=== PATIENT | male | born 1950 | race Caucasian/White ===

== ENCOUNTER 2017-01-04 17:12 | Inpatient (IN) | payer MEDICARE, MEDICAID ==
--- NOTE | 2017-01-04 19:30 | RAD ---
INDICATION: Shortness of breath. COMPARISON: Most recent comparison chest x-rays dated September 04, 2015 TECHNIQUE: Single AP portable view of the chest was obtained. FINDINGS: Image quality is compromised due to the relative inferiority of a portable chest x-ray. The heart and mediastinum exhibit normal size and contour. The lungs are grossly clear. There is no evidence of a large pleural effusion. Visualized bones are normal for the patient's age. IMPRESSION: No radiographic evidence for acute cardiopulmonary abnormality on this portable chest x-ray.
[2017-01-04] MEDS ORDERED: Cefepime(*) 2 GM in NS 0.9% 50 ML* 50 ML IVPB ONE (20:20)
[2017-01-04] MEDS ORDERED: Ciprofloxacin 400MG IVPREMIX(* 400 MG/200 ML BAG IVPB ONE (20:20)
[2017-01-04] MEDS ORDERED: Acetaminophen TAB* 325 MG PO ONE (20:21)
[2017-01-04] MEDS ORDERED: NS 0.9% 1000 ML* 3,500 ML IV ONE (20:21)
[2017-01-04] MEDS ORDERED: NS 0.9% 50 ML* 50 ML ONE (20:31)
[2017-01-04] MEDS ORDERED: Albuterol/Ipratropium NEB.SOL* Albuterol 2.5 MG/Ipratropium 0.5 MG 3 ML INH ONE (20:33)
[2017-01-04 20:37] LABS: Hematocrit 44 % (42-52); Hemoglobin 14.6 g/dl (14.0-18.0); Mean Corpuscular HGB Conc 33 g/dl (31-36); Mean Corpuscular Hemoglobin 31 pg (27-31); Mean Corpuscular Volume 92 fL (80-94); Mean Platelet Volume 9 um3 (7.4-10.4); Red Blood Count 4.76 10^6/ul (4.0-5.4); Red Cell Distribution Width 15 % (10.5-15); White Blood Count 18.3 10^3/ul (3.5-10.8)
[2017-01-04 20:39] LABS: Add Diff/Slide Review? Slide Review Added; Comments Flag Yes
[2017-01-04 20:52] LABS: Albumin 3.7 g/dL (3.2-5.2); BUN/Creatinine Ratio 19.1 (8-20); Calcium 9.2 mg/dL (8.6-10.3); EGFR African American 109.3 (>60); Globulin 3.9 g/dL (2-4); Potassium 3.8 mmol/L (3.5-5.0); Total Bilirubin 1.2 mg/dL (0.2-1.0); Total Protein 7.6 g/dL (6.4-8.9)
[2017-01-04 20:56] LABS: Troponin I 0.04 ng/mL (<0.04)
--- NOTE | 2017-01-04 21:46 | HP ---
H&P (Free Text) History and Physical: PCP: Roderick Casas MD Date/Time of Evaluation: 01/04/2017 2130 CC: SOB HPI: Mr Keen is a 66YO male resident of [facility] who is a very poor historian. When asked what brought him in he replies, "pneumonia". When asked what makes him think he has pneumonia he replies, "I self diagnosed." He continues to refuse to answer open ended-questions. After extensive directed questioning it is learned that he has had a productive cough for ~4 days without subjective F/C, sweats, or chest pain. He does report moderate R arm pain which started [place] [facility] [place] denies injury or change in activity. Per EMS report they were dispatched to [facility] for severe respiratory distress with an saO2 in the 80s finding Mr Keen confused, alert & oriented appearing calm with unlabored breathing and an saO2 of 93%. He reports SOB & cough, is placed on 4L [place] oxygen, and transported Vitals are notable for Tm 38.8C & saO2 mid-90s on 4L NC. WBCs are 18k 80% neutrophils & troponin is 0.04. Labs are otherwise reasonably normal. CXR is read as negative, but to my eye there has been interval development of R pericardial infiltrate. ECG is benign. PMedHx CVA w/ L hemiparesis HTN DM2 Raynaud's disease chronic B hand pain Ambulatory Orders Nursing to reconcile. Clopidogrel TAB* [Plavix TAB*] 75 mg PO DAILY 09/06/15 Exenatide VIAL (NF) [Bydureon (NF)] 2 mg SUBCUT WEEKLY 09/06/15 Metoprolol Tartrate TAB* [Lopressor TAB*] 100 mg PO BID 09/06/15 Omeprazole CAP* [Prilosec CAP* 20 MG] 40 mg PO DAILY 09/06/15 Pravastatin (NF) [Pravachol (NF)] 40 mg PO DAILY 09/06/15 QUEtiapine TAB* [Seroquel TAB*] 25 mg PO BEDTIME 09/06/15 Baclofen TAB* [Lioresal TAB*] 20 mg PO TID tab 09/08/15 Cholecalciferol TAB* [Vitamin D TAB*] 800 unit PO DAILY tab 09/08/15 Clopidogrel TAB* [Plavix TAB*] 75 mg PO DAILY tab 09/08/15 Hydrochlorothiazide TAB* [Hydrodiuril TAB*] 25 mg PO DAILY tab 09/08/15 Ibuprofen TAB* [Motrin TAB* 400 MG] 400 mg PO Q6H PRN #0 tab 09/08/15 Lisinopril TAB* [Prinivil TAB 10 MG*] 20 mg PO DAILY tab 09/08/15 Melatonin (NF) 3 mg PO BEDTIME PRN #0 tab 09/08/15 Metoprolol Tartrate TAB* [Lopressor TAB*] 100 mg PO BID tab 09/08/15 Polyethylene Glycol 3350* [Miralax*] 17 gm PO BID packet 09/08/15 QUEtiapine TAB* [Seroquel TAB*] 25 mg PO BEDTIME tab 09/08/15 amLODIPine TAB* [Norvasc 5 mg TAB*] 2.5 mg PO DAILY tab 09/08/15 metFORMIN* [Glucophage 850 MG TAB *] 850 mg PO 0800,1700 tab 09/08/15 Allergies No Known Allergies Allergy (Verified 03/10/15 15:25) SocHx: no tobacco, alcohol, or recreational drugs; lives at [facility]; DNR/ trial of intubation code status FamHx: positive for HTN, DM2 ROS: as above, otherwise reviewed and all were negative Constitutional: NAD, normally developed, obese white male vitals: Vital Signs Temp 38.4 C 01/04/17 21:30 Pulse 89 01/04/17 22:00 Resp 19 01/04/17 22:00 BP 140/64 01/04/17 22:00 Pulse Ox 91 01/04/17 22:00 Intake & Output 01/03/17 01/04/17 01/04/17 23:59 11:59 23:59 Intake Total 200 Balance 200 Weight 104.326 kg Intake: IV Fluids 200 HEENM: atraumatic; sclera/conjunctiva: non-icteric/clear; hearing: clinically intact; oropharynx: clear, mucosa tacky Neck: soft tissue: non-tender; thyroid: normal Pulmonary: clear to auscultation bilaterally, good aeration, no accessory muscle use CV: RR/RR, normal S1S2, no carotid bruit, no jugular venous distention, 2+ B DP/ PT, no edema Abdominal: soft, non-distended, non-tender, no rebound/guarding/rigidity, normoactive bowel sounds, no hepatosplenomegaly or masses, no costovertebral angle tenderness Musculoskeletal: general: grossly intact; contracture L wrist; L hemiplegia; gait: non-ambulatory at baseline, wheelchair dependent Integumental: normal appearance and texture of exposed skin Psychiatric orientation: AA&O to PPS but mildly confused affect: calm mood: cooperative eye contact: fair content: reliable responses: mildly slowed insight: poor Testing: Lab Results 01/04/17 01/04/17 01/04/17 Range/Units 20:25 20:25 20:25 WBC 18.3 H (3.5-10.8) 10^3/ul RBC 4.76 (4.0-5.4) 10^6/ul Hgb 14.6 (14.0-18.0) g/dl Hct 44 (42-52) % MCV 92 (80-94) fL MCH 31 (27-31) pg MCHC 33 (31-36) g/dl RDW 15 (10.5-15) % Plt Count 224 (150-450) 10^3/ul MPV 9 (7.4-10.4) um3 Neut % (Auto) 80.5 (38-83) % Lymph % (Auto) 6.5 L (25-47) % Winn % (Auto) 10.8 H (1-9) % Eos % (Auto) 1.9 (0-6) % Baso % (Auto) 0.3 (0-2) % Absolute Neuts (auto) 14.7 H (1.5-7.7) 10^3/ul Absolute Lymphs (auto) 1.2 (1.0-4.8) 10^3/ul Absolute Monos (auto) 2.0 H (0-0.8) 10^3/ul Absolute Eos (auto) 0.4 (0-0.6) 10^3/ul Absolute Basos (auto) 0.1 (0-0.2) 10^3/ul Absolute Nucleated RBC 0.01 10^3/ul Nucleated RBC % 0 Sodium 130 L (133-145) mmol/L Potassium 3.8 (3.5-5.0) mmol/L Chloride 96 L (101-111) mmol/L Carbon Dioxide 26 (22-32) mmol/L Anion Gap 8 (2-11) mmol/L BUN 17 (6-24) mg/dL Creatinine 0.89 (0.67-1.17) mg/dL Est GFR ( Amer) 109.3 (>60) Est GFR (Non-Af Amer) 85.0 (>60) BUN/Creatinine Ratio 19.1 (8-20) Glucose 150 H (70-100) mg/dL Lactic Acid 1.1 (0.5-2.0) mmol/L Calcium 9.2 (8.6-10.3) mg/dL Total Bilirubin 1.20 H (0.2-1.0) mg/dL AST 24 (13-39) U/L ALT 19 (7-52) U/L Alkaline Phosphatase 56 (34-104) U/L Troponin I 0.04 H* (<0.04) ng/mL Total Protein 7.6 (6.4-8.9) g/dL Albumin 3.7 (3.2-5.2) g/dL Globulin 3.9 (2-4) g/dL Albumin/Globulin Ratio 0.9 L (1-3) ECG, personally reviewed: NSR rate 78, no ischemia CXR, personally reviewed: to my eye there has been interval development of R tomi-cardial infiltrate; read as: IMPRESSION: No radiographic evidence for acute cardiopulmonary abnormality on this portable chest x-ray. Impression: 66M presenting with RLL pneumonia DIAGNOSIS & PLAN Primary RLL pneumonia : given IV cefepime & ciprofloxacin by ED : IV piperacillin/tazobactam : blood & sputum CXs : check urine S pneumo & Legionella antigens : IVFs : supplemental oxygen : supportive care Secondary HX CVA w/ L hemiparesis : no acute issues HTN : review meds once reconciled DM2 : insulin carb ratio diet : basal/bolus/correctional insulin : A1c 6.8 10/2016 Admission Rational: observation for initiation of IV ABX for RLL pneumonia DVTp: heparin SQ & SCDs Code Status: DNR trial of intubation/BiPap; MOLST updated HCP: sister, Kim Santana
[2017-01-04] MEDS ORDERED: Melatonin (NF) 3 MG TAB PO PRN (22:56)
[2017-01-04] MEDS ORDERED: Ondansetron INJ* 2 MG/ML VIAL IV PRN (22:57)
[2017-01-04] MEDS ORDERED: Benzonatate CAP* 100 MG PO PRN (22:58)
[2017-01-04] MEDS ORDERED: NS 0.9% 1000 ML* 1,000 ML IV SCH (23:00)
[2017-01-04] MEDS ORDERED: Baclofen TAB* 10 MG PO PRN (23:10)
[2017-01-04] MEDS ORDERED: ZOSYN 3.375 GM x ONE DOSE over 30 miuntes IVPB ×2 (23:30)
[2017-01-05] MEDS: Piperac/Tazob 3.375 gm in NS* 3.375 GM in PREMIX* 0 ML IVPB SCH ×6 (04:21→20:56)
[2017-01-05] MEDS: Omeprazole CAP* 20 MG PO SCH (05:52)
[2017-01-05 06:10] LABS: Hematocrit 39 % (42-52); Hemoglobin 13.1 g/dl (14.0-18.0); Mean Corpuscular HGB Conc 34 g/dl (31-36); Mean Corpuscular Hemoglobin 31 pg (27-31); Mean Corpuscular Volume 92 fL (80-94); Mean Platelet Volume 8 um3 (7.4-10.4); Red Blood Count 4.25 10^6/ul (4.0-5.4); Red Cell Distribution Width 15 % (10.5-15); White Blood Count 10.8 10^3/ul (3.5-10.8)
[2017-01-05 06:12] LABS: Comments Flag Yes
[2017-01-05 06:22] LABS: BUN/Creatinine Ratio 16.5 (8-20); Calcium 8.2 mg/dL (8.6-10.3); EGFR African American 115.3 (>60); EGFR Non-African American 89.6 (>60); Potassium 3.5 mmol/L (3.5-5.0)
[2017-01-05 06:35] LABS: Troponin I 0.04 ng/mL (<0.04)
[2017-01-05] MEDS: Insulin LISPRO* 1 UNITS UNIT SUBCUT SCH ×7 (09:08→22:08)
[2017-01-05] MEDS ORDERED: Magnesium CITRATE* 300 ML BTL PO ONE (09:44)
[2017-01-05] MEDS: Docusate CAP* 100 MG PO SCH ×2 (12:35→20:47)
--- NOTE | 2017-01-05 13:01 | PN ---
Subjective Date of Service: 01/05/17 Interval History: Pt feels "shitty" C/o pain "all over" and feeling weak. Has had "wet cough " x 5 days. Reports no problems with swallowing Objective Active Medications: Acetaminophen (Tylenol Tab*) 650 mg PO Q6H PRN PRN Reason: FEVER/PAIN Baclofen (Lioresal Tab*) 10 mg PO TID PRN PRN Reason: SPASMS Benzonatate (Tessalon Cap*) 100 mg PO BID PRN PRN Reason: COUGH Docusate Sodium (Colace Cap*) 200 mg PO BID [facility] Last Admin: 01/05/17 12:35 Dose: 200 mg Sodium Chloride (Ns 0.9% 1000 Ml*) 1,000 mls @ 125 mls/hr IV PER RATE [facility] Last Admin: 01/05/17 01:32 Dose: 125 mls/hr Piperacillin Sod/Tazobactam (Sod 3.375 gm/ IV Solution) 115 mls @ 28.75 mls/hr IVPB Q8H [facility] Last Admin: 01/05/17 12:35 Dose: 28.75 mls/hr Insulin Glargine (Lantus(*)) 25 units SUBCUT 2100 [facility] Insulin Human Lispro (Humalog*) 0 units SUBCUT AC [facility] PRN Reason: Protocol Last Admin: 01/05/17 12:34 Dose: 5 units Insulin Human Lispro (Humalog*) 0 units SUBCUT ACHS [facility] PRN Reason: Protocol Last Admin: 01/05/17 12:34 Dose: 6 units Melatonin (Melatonin (Nf)) 3 mg PO BEDTIME PRN; Protocol PRN Reason: Sleep Omeprazole (Prilosec Cap*) 20 mg PO DAILY@0600 [facility] Last Admin: 01/05/17 05:52 Dose: 20 mg Ondansetron HCl (Zofran Inj*) 4 mg IV Q6H PRN PRN Reason: NAUSEA Senna (Senokot Tab*) 2 tab PO BEDTIME [facility] Vital Signs 01/04/17 01/04/17 01/04/17 22:00 22:30 23:00 Temperature Pulse Rate 89 82 88 Respiratory 19 25 21 Rate Blood Pressure 140/64 120/58 127/59 (mmHg) O2 Sat by Pulse 91 92 89 Oximetry 01/05/17 01/05/17 00:40 03:18 Temperature 98.0 F 98.3 F Pulse Rate 71 82 Respiratory 22 18 Rate Blood Pressure 129/56 144/62 (mmHg) O2 Sat by Pulse 96 95 Oximetry Oxygen Devices in Use Now: Nasal Cannula - at 3L Appearance: 66 yo M in nAd, aAOx3 Eyes: No Scleral Icterus, PERRLA Ears/Nose/Mouth/Throat: NL Teeth, Lips, Gums, Mucous Membranes Moist Neck: NL Appearance and Movements; NL JVP, Trachea Midline Respiratory: - - rhonchi B/l L>R Cardiovascular: RRR Abdominal: NL Sounds; No Tenderness; No Distention, No Hepatosplenomegaly Lymphatic: No Cervical Adenopathy Extremities: No Clubbing, Cyanosis, - - trace pedal edema b/l Skin: No Nodules or Sclerosis Neurological: Alert and Oriented x 3, - - left hemiparesis Result Diagrams: 01/05/17 05:46 01/05/17 05:46 Microbiology and Other Data: Microbiology 01/05/17 02:50 Gram Stain - Final Sputum 01/05/17 02:10 Legionella Urinary Antigen - Final Urine Negative Legionella Streptococcus pneumoniae Ag Screen - Final Negative S. pneumo Antigen 01/05/17 01:10 Nasal Screen MRSA (PCR)(RICH) - Final Nasal Mrsa Positive Assess/Plan/Problems-Billing Assessment:66 yo M with h/o HTN, left hemiparesis due to CVa presents with pneumonia - Patient Problems (1) Healthcare-associated pneumonia Comment: cont zosyn, added Azithro Legoinella/Strep pneumo antg neg (2) Hemiparesis Comment: Chronic L hemiparesis due to CVA cont Plavix (3) Diabetes Comment: cont ISS/Lantus metformin on hold (4) HTN (hypertension) Comment: restarted Lisinopril and metoprolol. Holding HCTZ (5) DVT prophylaxis Comment: heparin sc Status and Disposition: inpatient
[2017-01-05] MEDS ORDERED: Azithromycin TAB* 250 MG PO ONE (13:03)
[2017-01-05] MEDS ORDERED: Albuterol 2.5 MG/3 ML NEB.SOL* (0.083%) INH PRN (13:07)
[2017-01-05] MEDS ORDERED: guaiFENesin LIQ* 100 MG/5 ML UDC PO PRN (13:07)
[2017-01-05] MEDS: Heparin VIAL(*) 5000 UNITS/ML VIAL (FIVE THOUSAND) SUBCUT SCH ×2 (14:04→22:08)
[2017-01-05] MEDS: Baclofen TAB* 10 MG PO SCH ×2 (14:04→20:46)
[2017-01-05 17:36] LABS: Urine Bacteria Absent (Absent); Urine Bilirubin Negative (Negative); Urine Glucose 1+(50 mg/dL) (Negative); Urine Nitrite Negative (Negative)
[2017-01-05] MEDS: Sodium Chloride TAB* 1 GM PO SCH (20:46)
[2017-01-05] MEDS: Metoprolol Tartrate TAB* 50 mg PO SCH (20:47)
[2017-01-05] MEDS: Senna TAB PO SCH (20:47)
[2017-01-05] MEDS: Insulin GLARGINE(*) 1 UNITS UNIT SUBCUT SCH (22:09)
[2017-01-06] MEDS: Acetaminophen TAB* 325 MG PO PRN ×2 (00:03→18:57)
[2017-01-06] MEDS: Piperac/Tazob 3.375 gm in NS* 3.375 GM in PREMIX* 0 ML IVPB SCH ×6 (02:49→19:16)
[2017-01-06] MEDS: Omeprazole CAP* 20 MG PO SCH (05:27)
[2017-01-06] MEDS: Heparin VIAL(*) 5000 UNITS/ML VIAL (FIVE THOUSAND) SUBCUT SCH ×3 (05:27→21:23)
--- NOTE | 2017-01-06 07:58 | PN ---
Subjective Date of Service: 01/06/17 Interval History: Feels much better. temp of mx 100.3 at night still no BM Objective Active Medications: Acetaminophen (Tylenol Tab*) 650 mg PO Q6H PRN PRN Reason: FEVER/PAIN Last Admin: 01/06/17 00:03 Dose: 650 mg Albuterol (Ventolin 2.5 Mg/3 Ml Neb.Hoda*) 2.5 mg INH Q6H PRN PRN Reason: SHORTNESS OF BREATH Azithromycin (Zithromax Tab*) 250 mg PO DAILY [facility] Baclofen (Lioresal Tab*) 10 mg PO TID PRN PRN Reason: SPASMS Baclofen (Lioresal Tab*) 20 mg PO TID [facility] Last Admin: 01/05/17 20:46 Dose: 20 mg Benzonatate (Tessalon Cap*) 100 mg PO BID PRN PRN Reason: COUGH Docusate Sodium (Colace Cap*) 200 mg PO BID [facility] Last Admin: 01/05/17 20:47 Dose: 200 mg Guaifenesin (Robitussin*) 10 ml PO Q4H PRN PRN Reason: COUGH Heparin Sodium (Porcine) (Heparin Vial(*)) 5,000 units SUBCUT Q8HR [facility] Last Admin: 01/06/17 05:27 Dose: 5,000 units Piperacillin Sod/Tazobactam (Sod 3.375 gm/ IV Solution) 115 mls @ 28.75 mls/hr IVPB Q8H [facility] Last Admin: 01/06/17 02:49 Dose: 28.75 mls/hr Insulin Glargine (Lantus(*)) 25 units SUBCUT 2100 [facility] Last Admin: 01/05/17 22:09 Dose: 25 units Insulin Human Lispro (Humalog*) 0 units SUBCUT AC [facility] PRN Reason: Protocol Last Admin: 01/05/17 17:31 Dose: 5 units Insulin Human Lispro (Humalog*) 0 units SUBCUT ACHS [facility] PRN Reason: Protocol Last Admin: 01/05/17 22:08 Dose: 3 units Lisinopril (Prinivil Tab*) 20 mg PO DAILY [facility] Melatonin (Melatonin (Nf)) 3 mg PO BEDTIME PRN; Protocol PRN Reason: Sleep Metoprolol Tartrate (Lopressor Tab*) 75 mg PO BID [facility] Last Admin: 01/05/17 20:47 Dose: 75 mg Omeprazole (Prilosec Cap*) 20 mg PO DAILY@0600 [facility] Last Admin: 01/06/17 05:27 Dose: 20 mg Ondansetron HCl (Zofran Inj*) 4 mg IV Q6H PRN PRN Reason: NAUSEA Polyethylene Glycol/Electrolytes (Miralax*) 17 gm PO DAILY [facility] Senna (Senokot Tab*) 2 tab PO BEDTIME [facility] Last Admin: 01/05/17 20:47 Dose: 2 tab Sodium Chloride (Sodium Chloride Tab*) 1 gm PO BID [facility] Last Admin: 01/05/17 20:46 Dose: 1 gm Vital Signs 01/05/17 01/05/17 01/05/17 16:35 19:50 20:00 Temperature 99.6 F 100.3 F Pulse Rate 106 120 Respiratory 28 20 18 Rate Blood Pressure 166/86 153/95 (mmHg) O2 Sat by Pulse 95 92 Oximetry 01/05/17 01/06/17 01/06/17 23:28 00:57 03:22 Temperature 100.3 F 100.3 F 99.4 F Pulse Rate 93 93 82 Respiratory 27 27 16 Rate Blood Pressure 164/81 164/81 143/70 (mmHg) O2 Sat by Pulse 100 100 92 Oximetry 01/06/17 07:30 Temperature 98.0 F Pulse Rate 74 Respiratory 16 Rate Blood Pressure 156/85 (mmHg) O2 Sat by Pulse 93 Oximetry Oxygen Devices in Use Now: None Appearance: 66 yo M in nAD, AAOx3 Eyes: No Scleral Icterus, PERRLA Ears/Nose/Mouth/Throat: NL Teeth, Lips, Gums, Mucous Membranes Moist Neck: NL Appearance and Movements; NL JVP, Trachea Midline Respiratory: Symmetrical Chest Expansion and Respiratory Effort, - - faint bibasiliar crackles Cardiovascular: NL Sounds; No Murmurs; No JVD, RRR Abdominal: NL Sounds; No Tenderness; No Distention Lymphatic: No Cervical Adenopathy Extremities: No Clubbing, Cyanosis, - - trace pedal edema b/l Skin: No Rash or Ulcers, No Nodules or Sclerosis Neurological: Alert and Oriented x 3, - - L hemiparesis Result Diagrams: 01/05/17 05:46 01/05/17 05:46 Microbiology and Other Data: Microbiology 01/05/17 02:50 Gram Stain - Final Sputum 01/05/17 02:10 Legionella Urinary Antigen - Final Urine Negative Legionella Streptococcus pneumoniae Ag Screen - Final Negative S. pneumo Antigen 01/05/17 01:10 Nasal Screen MRSA (PCR)(RICH) - Final Nasal Mrsa Positive Assess/Plan/Problems-Billing Assessment:66 yo M with h/o HTN, left hemiparesis due to CVa presents with pneumonia - Patient Problems (1) Healthcare-associated pneumonia Comment: cont zosyn,Azithro Legoinella/Strep pneumo antg neg improved greatly. Plan x 24 hrs of IV antibiotics ( due to temp of 100.3) and possible d/c in AM (2) Hemiparesis Comment: Chronic L hemiparesis due to CVA cont Plavix (3) Diabetes Comment: cont ISS/Lantus metformin on hold (4) HTN (hypertension) Comment: cont Lisinopril and metoprolol. restarting HCTZ (5) DVT prophylaxis Comment: heparin sc Status and Disposition: inpatient, plan to d/c to [facility] tomorrow.
[2017-01-06] MEDS: Sodium Chloride TAB* 1 GM PO SCH ×2 (09:02→21:21)
[2017-01-06] MEDS: Metoprolol Tartrate TAB* 50 mg PO SCH ×2 (09:02→21:20)
[2017-01-06] MEDS: Lisinopril TAB* 10 MG PO SCH (09:03)
[2017-01-06] MEDS: Hydrochlorothiazide TAB* 25 MG PO SCH (09:03)
[2017-01-06] MEDS: Baclofen TAB* 10 MG PO SCH ×3 (09:03→21:19)
[2017-01-06] MEDS: Azithromycin TAB* 250 MG PO SCH (09:03)
[2017-01-06] MEDS: Docusate CAP* 100 MG PO SCH ×2 (09:04→21:20)
[2017-01-06] MEDS: Insulin LISPRO* 1 UNITS UNIT SUBCUT SCH ×7 (09:05→21:22)
[2017-01-06] MEDS: Polyethylene Glycol 3350* 17 GM PACKET PO SCH (09:05)
[2017-01-06] MEDS ORDERED: Benzocaine/Menthol LOZ* 1 LOZENGE PO PRN (16:04)
[2017-01-06] MEDS: Senna TAB PO SCH (21:20)
[2017-01-06] MEDS: Insulin GLARGINE(*) 1 UNITS UNIT SUBCUT SCH (21:21)
[2017-01-06] MEDS ORDERED: CMCS - Melatonin (NF) 3 MG TAB PO PRN (21:52)
[2017-01-07] MEDS: Acetaminophen TAB* 325 MG PO PRN (02:40)
[2017-01-07] MEDS: Piperac/Tazob 3.375 gm in NS* 3.375 GM in PREMIX* 0 ML IVPB SCH ×4 (02:40→14:44)
[2017-01-07] MEDS: Omeprazole CAP* 20 MG PO SCH (05:52)
[2017-01-07] MEDS: Heparin VIAL(*) 5000 UNITS/ML VIAL (FIVE THOUSAND) SUBCUT SCH ×3 (05:52→22:59)
[2017-01-07] MEDS ORDERED: Sodium Phosphate ADULT ENEMA* 118 ml bottle PR ONE (07:25)
[2017-01-07] MEDS ORDERED: Magnesium Hydroxide LIQ* 30 ML UDC PO ONE (07:25)
[2017-01-07] MEDS ORDERED: PEG 3000 GI LAVAGE* 1 GALLON PO ONE (07:28)
[2017-01-07 08:25] LABS: Hematocrit 38 % (42-52); Hemoglobin 12.8 g/dl (14.0-18.0); Mean Corpuscular HGB Conc 34 g/dl (31-36); Mean Corpuscular Hemoglobin 31 pg (27-31); Mean Corpuscular Volume 92 fL (80-94); Mean Platelet Volume 8 um3 (7.4-10.4); Red Blood Count 4.09 10^6/ul (4.0-5.4); Red Cell Distribution Width 15 % (10.5-15); White Blood Count 10.3 10^3/ul (3.5-10.8)
[2017-01-07 08:36] LABS: Albumin 3.1 g/dL (3.2-5.2); BUN/Creatinine Ratio 15.9 (8-20); Calcium 8.4 mg/dL (8.6-10.3); EGFR African American 110.8 (>60); EGFR Non-African American 86.1 (>60); Globulin 3.7 g/dL (2-4); Total Protein 6.8 g/dL (6.4-8.9)
[2017-01-07 08:41] LABS: Potassium 3.8 mmol/L (3.5-5.0)
[2017-01-07] MEDS: Insulin LISPRO* 1 UNITS UNIT SUBCUT SCH ×7 (10:12→22:57)
[2017-01-07] MEDS: Hydrochlorothiazide TAB* 25 MG PO SCH (11:09)
[2017-01-07] MEDS: Metoprolol Tartrate TAB* 50 mg PO SCH ×2 (11:10→22:59)
[2017-01-07] MEDS: Docusate CAP* 100 MG PO SCH ×2 (11:10→22:59)
[2017-01-07] MEDS: Lisinopril TAB* 10 MG PO SCH (11:11)
[2017-01-07] MEDS: Baclofen TAB* 10 MG PO SCH ×3 (11:11→22:57)
[2017-01-07] MEDS: Azithromycin TAB* 250 MG PO SCH (11:12)
[2017-01-07] MEDS: Polyethylene Glycol 3350* 17 GM PACKET PO SCH (11:42)
[2017-01-07] MEDS: Sodium Chloride TAB* 1 GM PO SCH ×2 (11:43→22:57)
[2017-01-07] MEDS ORDERED: Magnesium CITRATE* 300 ML BTL PO ONE (13:07)
--- NOTE | 2017-01-07 13:22 | DS ---
DISCHARGE SUMMARY: DATE OF ADMISSION: 01/04/17 DATE OF DISCHARGE: 01/07/17 PRIMARY CARE PROVIDER: Physician at [facility]. DISCHARGE DIAGNOSIS: Healthcare-associated pneumonia. SECONDARY DIAGNOSES: 1. History of cerebrovascular accident with left-sided hemiparesis. 2. Hypertension. 3. Diabetes type 2. 4. Raynaud's disease. 5. Chronic pain. MEDICATIONS AT DISCHARGE: Include: 1. Azithromycin 250 mg p.o. daily for a total of 3 days. 2. Augmentin 500 mg p.o. b.i.d. for a total of 5 days. Remaining medications are mostly unchanged apart from the addition of laxatives and includes: 1. Albuterol nebulizer on a p.r.n. basis. 2. Baclofen 20 mg 3 times a day p.r.n. 3. Vitamin D3 2000 units daily. 4. Plavix 75 mg daily. 5. Colace 200 mg b.i.d. 6. Hydrochlorothiazide 25 mg daily. 7. Lisinopril 20 mg daily. 8. Metoprolol tartrate 75 mg b.i.d. 9. MiraLAX 17 g daily. 10. Pravachol 20 mg daily. 11. Senna 2 tablets at bedtime. 12. Sodium chloride tablets 1 g b.i.d. 13. Robitussin 10 mL every 4 hours p.r.n. 14. Metformin 850 mg p.o. b.i.d. STUDIES PERFORMED DURING THE HOSPITAL STAY: Include: On 01/07/17: White blood cell count was 10.3, hemoglobin of 12.8, hematocrit of 38, and platelet count of 218. Sodium of 131, potassium of 3.8, chloride 99, carbon dioxide 25, BUN 14, and creatinine 0.88. Liver functions were unremarkable. Urinalysis on 01/05/17 showed trace blood, absent bacteria, and trace ketones. Microbiology studies showed sputum culture positive for Staphylococcus aureus and normal opal. Urine Legionella and streptococcus pneumo antigens were negative. Blood cultures were negative to the day of discharge. Portable chest x-ray obtained on admission, impression: "No radiographic evidence for acute cardiopulmonary abnormality on this portable chest x-ray." HOSPITALIZATION COURSE: Elias Keen is a 66-year-old unfortunate male with history of ischemic CVA, with chronic left-sided hemiparesis, who was currently a snf resident at [facility] and presented complaining of shortness of breath, cough, and feeling unwell. He was noted to have right pericardial infiltrate, although his chest x-ray was officially read as unremarkable. He responded very well to intravenous antibiotics. His initial white blood cell count was 18,000 and within 24 hours normalized. He was treated with Zosyn and azithromycin, with good results. His hypoxemia resolved within 24 hours. At discharge, the patient still complains of right upper quadrant abdominal pain that is worse with cough. He does have point tenderness in the area and the discomfort is most likely related to muscle strain while coughing. His liver function tests are unremarkable. In addition to that he is at his baseline. He does have coarse breath sounds bilaterally, but his hypoxemia resolved entirely. He is going to be discharged back to [facility] to follow up with his primary care physician there. PHYSICAL EXAMINATION AT THE TIME OF DISCHARGE: Vital Signs: Blood pressure 157 /89, heart rate of 63 and regular, respiratory rate of 19, oxygen saturation 93 % on room air, temperature of 98.2. General: The patient is a very pleasant 66 -year- old male who is not in acute distress. Alert, awake, and oriented x3. HEENT: Head is atraumatic, normocephalic. Eyes: Pupils equal, reactive to light and accommodation. Oropharynx clear. Mucosa moist. Neck: Supple. No JVD. No bruits bilaterally. Cardiovascular: Regular rate and rhythm. No murmurs. Respiratory: Coarse breath sounds bilaterally. No wheezes. Abdomen: Soft, with specific point tenderness in the right upper quadrant in the anterior axillary line, with no rebound and no guarding. Bowel sounds are present in all 4 quadrants. Extremities: There is trace bilateral pedal edema. Pulses are +2 bilaterally. There is no clubbing or cyanosis. Neuro Evaluation: The patient has left-sided hemiparesis. Speech is clear. Please note that this is a short summary of the patient's hospital stay. Please refer to further medical records for details. TIME SPENT: Approximately 40 minutes were spent on the patient's discharge. ADDENDUM TO DISCHARGE SUMMARY: DATE OF ADMISSION: 01/04/2017. DATE OF DISCHARGE: 01/08/2017. The discharge summary was originally dictated yesterday, which was 01/07/17. The addendum is as follows. Please note that Mr. Keen refused to be discharged on 01/07/17, stating that he "is not going to be put out on the street on ." Since the patient refused to be transferred back to his [facility], he stayed overnight and the very next day, he was ready to go home. Overnight, he sipped on a liter of GoLYTELY and he had a large bowel movement. Also noted that his systolic pressures had been elevated and his medications were adjusted. The chances to his medications include: 1. His metoprolol tartrate is increased from 75 to 100 mg b.i.d. 2. His lisinopril is increased from 20 mg daily to 20 mg in the morning and 10 mg at night. The remaining medications are unchanged. His physical exam was unchanged from the one that was dictated prior. The patient still complains and has point tenderness in the right upper quadrant of his abdomen. The pain occurs when he coughs in the same area. It is most likely due to muscle strain. CC: [facility]* [id number]/[facility] #: [id number]/[facility] #: [id number] MTDD
[2017-01-07] MEDS ORDERED: Lisinopril TAB* 10 MG PO ONE (16:41)
[2017-01-07] MEDS ORDERED: hydrALAZINE IV* 20 MG/ML VIAL IV SLOW PU PRN (18:41)
[2017-01-07] MEDS: Amoxicillin/Clavulanate TAB* 500 MG PO SCH (22:57)
[2017-01-07] MEDS: Insulin GLARGINE(*) 1 UNITS UNIT SUBCUT SCH (22:58)
[2017-01-07] MEDS: Senna TAB PO SCH (23:00)
[2017-01-08] MEDS ORDERED: hydrALAZINE IV* 20 MG/ML VIAL IV SLOW PU PRN (00:53)
[2017-01-08] MEDS: Heparin VIAL(*) 5000 UNITS/ML VIAL (FIVE THOUSAND) SUBCUT SCH (05:47)
[2017-01-08] MEDS: Omeprazole CAP* 20 MG PO SCH (05:47)
[2017-01-08] MEDS: Insulin LISPRO* 1 UNITS UNIT SUBCUT SCH ×3 (08:43→12:24)
[2017-01-08] MEDS ORDERED: Metoprolol Tartrate TAB* 100 MG TAB PO SCH (09:00)
[2017-01-08] MEDS: Azithromycin TAB* 250 MG PO SCH (09:32)
[2017-01-08] MEDS: Amoxicillin/Clavulanate TAB* 500 MG PO SCH (09:32)
[2017-01-08] MEDS: Baclofen TAB* 10 MG PO SCH (09:32)
[2017-01-08] MEDS: Lisinopril TAB* 10 MG PO SCH (09:32)
[2017-01-08] MEDS: Sodium Chloride TAB* 1 GM PO SCH (09:33)
[2017-01-08] MEDS: Hydrochlorothiazide TAB* 25 MG PO SCH (09:33)
[2017-01-08] MEDS: Docusate CAP* 100 MG PO SCH (09:33)
[2017-01-08] MEDS: Polyethylene Glycol 3350* 17 GM PACKET PO SCH (10:04)
[2017-01-08 11:53] VITALS: BP 158/80
--- NOTE | 2017-01-08 15:46 | DS ---
ADDENDUM: The discharge summary was originally dictated yesterday, which was 01/07/17. The addendum is as follows. Please note that Mr. Keen refused to be discharged on 01/07/17, stating that he "is not going to be put out on the street on ." Since the patient refused to be transferred back to his [facility], he stayed overnight and the very next day, he was ready to go ana . Overnight, he sipped on a liter of GoLYTELY and he had a large bowel movement. Also noted that his systolic pressures had been elevated and his medications were adjusted. The chances to his medications include: 1. His metoprolol tartrate is increased from 75 to 100 mg b.i.d. 2. His lisinopril is increased from 20 mg daily to 20 mg in the morning and 10 mg at night. The remaining medications are unchanged. His physical exam was unchanged from the one that was dictated prior. The patient still complains a nd has point tenderness in the right upper quadrant of his abdomen. The pain occurs when he coughs in the same area. It is most likely due to muscle strain. [id number]/[facility] #: [id number]
== END 2017-01-08 13:30 | DRG 194 ==
LOC: ED 17:12 → MEDTELE 21:45 → OBSVTOIN 01-05 14:58 → MED 01-05 23:06
PROVIDERS: ADMIT Hospitalist; ATTEND Internal Medicine
DX: J18.9 Pneumonia, unspecified organism (principal); I69.354 Hemiplegia and hemiparesis following cerebral infarction affecting left non-dominant side; E11.9 Type 2 diabetes mellitus without complications; I10 Essential (primary) hypertension; G89.29 Other chronic pain; B95.61 Methicillin susceptible Staphylococcus aureus infection as the cause of diseases classified elsewhere; I73.00 Raynaud's syndrome without gangrene; Z66 Do not resuscitate; S39.011A Strain of muscle, fascia and tendon of abdomen, initial encounter; M79.641 Pain in right hand; M79.642 Pain in left hand; Y95 Nosocomial condition; Z83.3 Family history of diabetes mellitus; Z82.49 Family history of ischemic heart disease and other diseases of the circulatory system; Z99.3 Dependence on wheelchair; Z79.02 Long term (current) use of antithrombotics/antiplatelets; R09.02 Hypoxemia; X58.XXXA Exposure to other specified factors, initial encounter; Y92.9 Unspecified place or not applicable
CPT/HCPCS: 36415; 71010; 80048; 80053; 81003; 81015; 83605; 84484; 85025; 87040; 87070; 87077; 87186; 87205; 87641; 87899; 93005; 94150; 94640; 94760; A9270-GY; G0378; J0360; J0692; J0744; J1644; J2543

== ENCOUNTER 2018-01-30 16:53 | Inpatient (IN) | payer MEDICARE, MEDICAID ==
[2018-01-30] MEDS ORDERED: NS 0.9% 1000 ML*IV.FLUID IV ONE (17:43)
[2018-01-30] MEDS ORDERED: Acetaminophen TAB* 325 MG PO ONE (17:54)
--- NOTE | 2018-01-30 17:58 | ED ---
Respiratory - HPI Summary HPI Summary: 67 male presents from [facility] with shortness breath and fever for the past 2 days. He claims he is not more fatigued than normal. He admits to cough. He denies any chest pain. He admits to occasional headache. He also admits to occasionally sore throat and sinus congestion. Also complains of chronic right wrist pain. When asked if has COPD or asthma he states maybe a little but can not find such in his record. He has history of a previous CVA. He denies any belly pain. No nausea and no vomiting. He states he is sometimes is on oxygen at home. He currently is on 2 L oxygen. He is a diabetic and has HTN. per note from intermediate patient has had AMS. - History of Current Complaint Chief Complaint: EDFever Stated Complaint: GENERAL ILLNESS Time Seen by Provider: 01/30/18 17:43 Pain Intensity: 2 - Allergy/Home Medications Allergies/Adverse Reactions: Allergies Allergy/AdvReac Type Severity Reaction Status Date / Time No Known Allergies Allergy Verified 03/10/15 15:25 Home Medications: Home Medications Baclofen TAB* [Lioresal TAB*] 20 mg PO 0700,1500,2300 01/30/18 [History Confirmed 01/30/18] Hydrochlorothiazide TAB* [Hydrodiuril TAB*] 25 mg PO QAM 01/30/18 [History Confirmed 01/30/18] Lactic Acid CR 12% (NF) [Lac-Hydrin 12% (NF)] 12 % TOPICAL BID 01/30/18 [ History Confirmed 01/30/18] Lisinopril TAB* [Prinivil TAB 10 MG*] 20 mg PO QAM 01/30/18 [History Confirmed 01/30/18] Ondansetron TAB* [Zofran 4 MG Tab*] 4 mg PO Q6H PRN 01/30/18 [History Confirmed 01/30/18] Pravastatin (NF) [Pravachol (NF)] 20 mg PO QAM 01/30/18 [History Confirmed 01/30] metFORMIN* [Glucophage 850 MG TAB *] 850 mg PO BID 01/30/18 [History Confirmed 01/30/18] PMH/Surg Hx/FS Hx/Imm Hx Endocrine/Hematology History: Reports: Hx Diabetes Denies: Hx Systemic Lupus Erythematosus Cardiovascular History: Reports: Hx Hypertension Denies: Hx Congestive Heart Failure, Hx Pacemaker/ICD History: Reports: Hx Benign Prostatic Hyperplasia Denies: Hx Dialysis, Hx Renal Disease Musculoskeletal History: Reports: Hx Arthritis Denies: Hx Rheumatoid Arthritis Sensory History: Reports: Hx Contacts or Glasses Denies: Hx Hearing Aid Opthamlomology History: Reports: Hx Contacts or Glasses Neurological History: Reports: Hx CVA - in 2009, Hx Transient Ischemic Attacks ( TIA) Psychiatric History: Denies: Hx Eating Disorder, Hx Panic Disorder, Hx of Violent Episodes Against Others - Cancer History Hx Chemotherapy: No - Surgical History Surgery Procedure, Year, and Place: 1973 - SHOULDER & CLAVICLE REPAIR. TONSILECTOMY. CATARACTS - JE[facility]-2008 Infectious Disease History: No Infectious Disease History: Denies: Traveled Outside the [place] in Last 30 Days - Family History Known Family History: Positive: Other - Hx breast CA in mother - Social History Alcohol Use: None Substance Use Type: Reports: None Smoking Status (MU): Never Smoked Tobacco Review of Systems Positive: Fever. Negative: Fatigue Negative: Chest Pain Positive: Shortness Of Breath, Cough All Other Systems Reviewed And Are Negative: Yes Physical Exam Triage Information Reviewed: Yes Vital Signs On Initial Exam: Initial Vitals Temp Pulse Resp BP Pulse Ox 101.3 F 88 36 144/67 95 01/30/18 17:12 01/30/18 17:12 01/30/18 17:12 01/30/18 17:12 01/30/18 17:12 Vital Signs Reviewed: Yes Appearance: Positive: Well-Appearing Skin: Positive: Warm, Dry Head/Face: Positive: Normal Head/Face Inspection Eyes: Positive: Normal, EOMI, KRYSTEN, Conjunctiva Clear ENT: Positive: Normal ENT inspection, Pharynx normal, TMs normal Neck: Positive: Supple, Nontender, No Lymphadenopathy Respiratory/Lung Sounds: Positive: Breath Sounds Present, Rhonchi - left lower lobe Cardiovascular: Positive: Normal, RRR Abdomen Description: Positive: Nontender, Soft Bowel Sounds: Positive: Present Musculoskeletal: Positive: Normal Neurological: Positive: Normal Psychiatric: Positive: Normal Diagnostics - Vital Signs Vital Signs Temp Pulse Resp BP Pulse Ox 01/30/18 17:12 101.3 F 88 36 144/67 95 - Laboratory Result Diagrams: 01/30/18 18:51 01/30/18 18:51 Lab Statement: Any lab studies that have been ordered have been reviewed, and results considered in the medical decision making process. - Radiology chest Xray Interpretation: Positive (See Comments) Radiology Interpretation Completed By: Radiologist - EKG No standard instances Cardiac Rate: NL EKG Rhythm: Sinus Rhythm EKG Interpretation: sinus rhythm EKG Comparison: No Significant Change Disposition - Course Course Of Treatment: Discussed case with Dr. hoff who agrees to admit patient. 67 male presents from [facility] with shortness breath and fever for the past 2 days. He claims he is not more fatigued than normal. He admits to cough. He denies any chest pain. He admits to occasional headache. He also admits to occasionally sore throat and sinus congestion. Also complains of chronic right wrist pain. When asked if has COPD or asthma he states maybe a little but can not find such in his record. He has history of a previous CVA. He denies any belly pain. No nausea and no vomiting. He states he is sometimes is on oxygen at home. He currently is on 2 L oxygen. He is a diabetic. per intermediate note patient has had AMS. On exam has rhonchi left lower lobe. Heart regular rate and rhythm. Abdomen soft nontender. ekg normal sinus. chest xray shows left lower lobe inflitrate, wbc elevated. lactic normal. gave fluid and cefepime. discussed case with dr bey who agrees to admit patient. - Differential Dx - Cardiopulmonary Differential Diagnoses - Cardiopulmonary: Bronchitis, Lower Resp Infection, Other - uti - Diagnoses Provider Diagnoses: Pneumonia, Sepsis - Critical Care Time Critical Care Time: 30-74 min - 35 Discharge - Sign-Out/Discharge Documenting (check all that apply): Discharge/Admit/Transfer - Discharge Plan Condition: Stable Disposition: ADMITTED TO [facility] - Billing Disposition and Condition Condition: STABLE Disposition: Admitted to [facility]
--- NOTE | 2018-01-30 18:33 | RAD ---
INDICATION: Fever and cough. COMPARISON: Comparison is made with a prior study from April 06, 2017. TECHNIQUE: AP and lateral views of the chest were obtained. FINDINGS: The heart is within normal limits in size. Mediastinal and hilar contours appear within normal limits. The lungs are underinflated. There is a small infiltrate in the left lower lobe. No pleural effusion is seen. IMPRESSION: LOW LUNG VOLUMES, SMALL LEFT LOWER LOBE INFILTRATE
[2018-01-30] MEDS ORDERED: Cefepime(*) 2 GM in NS 0.9% 50 ML* 50 ML IVPB ONE (18:40)
[2018-01-30 19:02] LABS: Hematocrit 44 % (42-52); Hemoglobin 14.9 g/dl (14.0-18.0); Mean Corpuscular HGB Conc 34 g/dl (31-36); Mean Corpuscular Hemoglobin 32 pg (27-31); Mean Corpuscular Volume 92 fL (80-94); Mean Platelet Volume 7.8 um3 (7.4-10.4); Platelet Count 257 10^3/ul (150-450); Red Blood Count 4.73 10^6/ul (4.00-5.40); Red Cell Distribution Width 15 % (10.5-15); White Blood Count 14.2 10^3/ul (3.5-10.8)
[2018-01-30 19:10] LABS: INR 1.06 (0.77-1.02)
[2018-01-30] MEDS ORDERED: NS 0.9% 50 ML* 50 ML ONE (19:10)
[2018-01-30] MEDS ORDERED: Cefepime 2 GM in Dextrose(*) 2 GM/50 ML BAG IV ONE (19:12)
[2018-01-30 19:23] LABS: EGFR Non-African American 84.8 (>60)
[2018-01-30 19:43] LABS: ABS Basophils 0.1 10^3/ul (0-0.2); ABS Eosinophils 0.3 10^3/ul (0-0.6); ABS Lymphocytes 0.7 10^3/ul (1.0-4.8); ABS Monocytes 1.9 10^3/ul (0-0.8); ABS Neutrophils 11.3 10^3/ul (1.5-7.7); ABS Nucleated RBC 0 10^3/ul; Eosinophil % 1.9 % (0-6); Lymphocyte % 5.2 % (25-47); Nucleated Red Blood Cells % 0
[2018-01-30] MEDS ORDERED: Albuterol 2.5 MG/3 ML NEB.SOL* (0.083%) INH PRN (20:46)
[2018-01-30] MEDS ORDERED: Magnesium Hydroxide LIQ* 30 ML UDC PO PRN (20:46)
[2018-01-30] MEDS ORDERED: Ondansetron INJ* 2 MG/ML VIAL IV PRN (20:46)
[2018-01-30] MEDS ORDERED: Al Hydrox/Mg Hydrox/Simet LIQ* 30 ML UDC PO PRN (20:46)
[2018-01-30] MEDS ORDERED: NS 0.9% 1000 ML* 1,000 ML IV SCH (21:00)
[2018-01-30] MEDS ORDERED: Dextrose 50% Syringe 50 ML* 25 GM/50 ML SYRINGE IV PUSH PRN (21:03)
[2018-01-30] MEDS ORDERED: Benzonatate CAP* 100 MG PO PRN (21:05)
[2018-01-30 21:39] LABS: Urine Appearance Turbid; Urine Blood Negative (Negative); Urine Color Amber; Urine Ketones Trace (Negative); Urine Protein 3+(>=500 mg/dL) (Negative); Urine Specific Gravity 1.026 (1.010-1.030); Urine Urobilinogen Negative (Negative)
[2018-01-30] MEDS ORDERED: Azithromycin IV* 500 MG ADVAN VIAL/BAG IVPB ONE (21:57)
[2018-01-30] MEDS ORDERED: Cefepime 1 GM in Dextrose(*) 1 GM/50 ML BAG IV SCH (22:00)
[2018-01-30] MEDS: Azithromycin IV(*) 500 MG in NS 0.9% 250 ML* 250 ML IVPB SCH (22:05)
[2018-01-31] MEDS: Heparin VIAL(*) 5000 UNITS/ML VIAL (FIVE THOUSAND) SUBCUT SCH ×5 (00:23→20:22)
--- NOTE | 2018-01-31 04:51 | HP ---
CC: Dr. Casas * ADMISSION HISTORY AND PHYSICAL: DATE OF ADMISSION: 01/30/18 PATIENT OF: Rebeca Smith MD * (DICTATED BY FELIPE COATES) PRIMARY CARE PHYSICIAN: Jere Casas MD CHIEF COMPLAINT: Cough and fever. HISTORY OF PRESENT ILLNESS: Mr. Keen is a pleasant 67-year-old gentleman who carries past medical history significant for CVA with left hemiparesis as well as hypertension, type 2 diabetes mellitus, Raynaud's disease, who has been a resident of [facility], and presented to the emergency room earlier this evening with complaints of worsening cough and fever today. Patient is a very poor historian and he answer most questions with one word, however, he is alert and oriented to his place and continues sometimes to refusing answer questions more than one words. He notes that he has been doing relatively well until the past few days when he noticed increasing productive cough and shortness of breath. According to [facility] staff, he also developed fever today with generalized weakness and lethargy more prominent than his baseline. Patient has frequent episode of pneumonia in the past most recently in December of 2016 when he was admitted. He denies any chest pain, nausea, vomiting, or any other associated symptoms. He had some sweats last night and he said he did not have any chills and he noticed that productive cough has been going on for few days with some phlegm noted. He was evaluated in the emergency room and noted to have leukocytosis with white count of 14,000. His vitals revealed heart rate in the 80s. He also had a fever of 101.3. He was found to meet sepsis II criteria for which IV fluid were given as well as antibiotics. He had chest x-ray as well that revealed left lower lobe infiltrate consistent with pneumonia. Given his ongoing symptoms and finding of his x-ray as well as meeting criteria for sepsis , we were asked to see the patient for further evaluation and to discuss admission. PAST MEDICAL HISTORY: As mentioned above. Significant for: 1. CVA with hemiparesis for the past few years for which the patient has been very limited physical activity. He uses the wheelchair and to use hauling technique to move him from bed to chair. Otherwise, he is nonambulatory. 2. Hypertension. 3. Diabetes mellitus, type 2. 4. Hyperlipidemia. 5. Raynaud's disease. 6. Coronary artery disease. 7. Chronic constipation. PAST SURGICAL HISTORY: Significant for left shoulder repair due to frequent dislocation back in 1973. CURRENT MEDICATIONS: According to [facility] records, his current medications include: 1. Tylenol 650 mg p.o. q.4 hours as needed for fever or pain. 2. Baclofen 20 mg p.o. daily. 3. Vitamin D3 2000 units p.o. daily. 4. Hydrochlorothiazide 25 mg p.o. daily. 5. Lactic acid topical solution 12% as prescribed. 6. Lisinopril 20 mg p.o. daily. 7. Glucophage 850 mg p.o. b.i.d. 8. Zofran 4 mg p.o. q.6 hours as needed for nausea. 9. MiraLax 17 g p.o. daily. 10. Pravachol 20 mg p.o. daily. 11. Docusate sodium two tablets p.o. q.h.s. 12. Sodium chloride tablet once daily. 13. Plavix 75 mg p.o. daily. 14. Metoprolol 100 mg p.o. b.i.d. ALLERGIES: He has no known drug allergies. FAMILY HISTORY: Significant for hypertension and type 2 diabetes mellitus. SOCIAL HISTORY: Patient is a nonsmoker, who denies alcohol intake and no illicit drug use. He has been residing at [facility] since his CVA with left-sided hemiparesis. His sister, Mando, is healthcare proxy carrier and he has MOLST form updated and he wishes to be a DNR. REVIEW OF SYSTEMS: See HPI, otherwise 14 system review of systems were essentially negative. PHYSICAL EXAMINATION GENERAL: He is an obese elderly gentleman, appears comfortable and in no acute distress or discomfort at the time of admission. VITAL SIGNS: Revealed temperature of 99.9, pulse of 79, respiration of 30, O2 sat of 94% on 2 L oxygen, and blood pressure of 142/71. HEENT: Head is normocephalic, atraumatic. PERRLA, sclerae anicteric. EOMs intact. Oropharynx is pink and moist. NECK: Supple. Trachea midline. No cervical adenopathy, thyromegaly, or JVD. LUNGS: There is bibasilar rhonchi noted but breath sounds otherwise clear and there is no evidence of wheezing. HEART: Regular rate and rhythm. Normal S1 and S2 without rubs, murmurs, or gallops. BACK: With normal curvature. No CVA tenderness. ABDOMEN: Soft, nontender, and nondistended. No hernias, masses, or hepatosplenomegaly. EXTREMITIES: Without cyanosis, clubbing, or edema. RECTAL: Deferred at this time. NEUROLOGIC: There is left-sided hemiparesis noted, more pronounced to the left upper extremity with some contraction noted at the wrist joint. Otherwise, muscle bag machine adjuster to the right side is normal. Tongue is midline and sensation is intact throughout. LABORATORY WORKUP: CBC revealed leukocytosis with white count of 14,000, hemoglobin of 14.9, hematocrit of 44, and platelets of 257. Chemistry panel: Sodium of 132, potassium 3.6, chloride 96, CO2 of 27, BUN of 14, and creatinine of 0.9. His glucose of 213, lactic acid 1.6. LFTs essentially within normal limits. BNP slightly elevated with value of 153. ACCESSORY DIAGNOSTIC DATA: Chest x-ray as mentioned above revealed evidence of small left lower lobe infiltrate as well as low lung volumes. EKG was done, revealed no evidence of ST changes. IMPRESSION: A 67-year-old gentleman with past medical history significant for hypertension, CVA, and diabetes mellitus, who has been residing at [facility] and wheelchair bound, who was brought to the emergency room with few days history of worsening cough and fever today and found to have a left lower lobe pneumonia. ASSESSMENT AND PLAN: 1. Left lower lobe pneumonia. Patient was given the appropriate coverage in the ED with IV cefepime and quinolone. He also received adequate IV hydration per sepsis protocol. We will continue IV antibiotics using cefepime and add azithromycin. Blood cultures and sputum culture were drawn, awaiting results. We also checked his urine for Strep pneumo and Legionella antigens. Supplemental oxygen and supportive care as well. We will give him another liter of IV fluid and encourage p.o. intake. 2. Cerebrovascular accident with left hemiparesis, appears to be stable and no acute issues. We will provide supportive care. Probably PT/OT evaluation in the morning. 3. Hypertension. We will continue home medication. 4. Diabetes mellitus type 2. We will cover him with insulin per sliding scale. Most recent hemoglobin A1c on record was 6.8 back in October of last year. 5. DVT prophylaxis. Patient is a high risk and would be covered with subcu heparin. 6. Code status. He is a DNR and MOLST form has been updated and signed. DISPOSITION AT ADMISSION: To medical floor for IV antibiotics and treatment of pneumonia as well as supportive care. TIME SPENT: Approximately 60 minutes were spent admitting this patient with 50 % has been taking history and performing physical exam. FELIPE COATES [id number]/CPS #: [id number] MTDD
[2018-01-31 08:12] LABS: Hematocrit 36 % (42-52); Hemoglobin 12.1 g/dl (14.0-18.0); Mean Corpuscular HGB Conc 33 g/dl (31-36); Mean Corpuscular Hemoglobin 31 pg (27-31); Mean Corpuscular Volume 94 fL (80-94); Mean Platelet Volume 8.1 um3 (7.4-10.4); Platelet Count 193 10^3/ul (150-450); Red Blood Count 3.85 10^6/ul (4.00-5.40); Red Cell Distribution Width 15 % (10.5-15); White Blood Count 7.5 10^3/ul (3.5-10.8)
[2018-01-31 08:31] LABS: EGFR Non-African American 106.5 (>60)
[2018-01-31] MEDS: Insulin LISPRO* 1 UNITS UNIT SUBCUT SCH ×4 (09:23→20:22)
[2018-01-31] MEDS: Baclofen TAB* 20 MG PO SCH ×4 (09:26→23:07)
[2018-01-31] MEDS: Metoprolol Tartrate TAB* 100 MG TAB PO SCH ×3 (09:26→20:22)
[2018-01-31] MEDS: Hydrochlorothiazide TAB* 25 MG PO SCH (09:26)
[2018-01-31] MEDS: Clopidogrel TAB* 75 MG PO SCH (09:27)
[2018-01-31] MEDS: Atorvastatin* 10 MG TAB PO SCH (09:27)
[2018-01-31] MEDS: Lisinopril TAB* 10 MG PO SCH (09:28)
[2018-01-31] MEDS: Polyethylene Glycol 3350* 17 GM PACKET PO SCH (09:28)
[2018-01-31] MEDS: Docusate CAP* 100 MG PO SCH ×3 (09:28→20:22)
[2018-01-31] MEDS: Cholecalciferol TAB* 1000 UNITS PO SCH (09:28)
[2018-01-31] MEDS: guaiFENesin ER TAB 600 MG PO SCH ×2 (09:28→20:22)
[2018-01-31] MEDS: Sodium Chloride TAB* 1 GM PO SCH (09:29)
[2018-01-31 10:08] LABS: Monocytes % 17 % (0-7)
[2018-01-31 10:12] LABS: ABS Basophils 0 10^3/ul (0-0.2); ABS Eosinophils 0.4 10^3/ul (0-0.6); ABS Lymphocytes 1.1 10^3/ul (1.0-4.8); ABS Monocytes 1.5 10^3/ul (0-0.8); ABS Neutrophils 4.5 10^3/ul (1.5-7.7)
--- NOTE | 2018-01-31 10:28 | PN ---
Subjective Date of Service: 01/31/18 Interval History: Dry cough still present but improved. Not SOB. No new c/o. Objective Active Medications: Acetaminophen (Tylenol Tab*) 650 mg PO Q4H PRN PRN Reason: FEVER/PAIN Al Hydrox/Mg Hydrox/Simethicone (Maalox Plus*) 30 ml PO Q6H PRN PRN Reason: INDIGESTION Albuterol (Ventolin 2.5 Mg/3 Ml Neb.Hoda*) 2.5 mg INH [id number] AWAKE PRN PRN Reason: sob/wheezing Atorvastatin Calcium (Lipitor*) 5 mg PO QAM [facility]; Protocol Last Admin: 01/31/18 09:27 Dose: 5 mg Baclofen (Lioresal Tab*) 20 mg PO 0700,1500,2300 [facility] Last Admin: 01/31/18 09:26 Dose: 20 mg Benzonatate (Tessalon Cap*) 100 mg PO BID PRN PRN Reason: COUGH Last Admin: 01/31/18 00:00 Dose: 100 mg Cholecalciferol (Vitamin D Tab*) 2,000 units PO QAM [facility] Last Admin: 01/31/18 09:28 Dose: 2,000 units Clopidogrel Bisulfate (Plavix Tab*) 75 mg PO DAILY [facility] Last Admin: 01/31/18 09:27 Dose: 75 mg Dextrose (D50w Syringe 50 Ml*) 12.5 gm IV PUSH .FOR FS < 60 - SS PRN PRN Reason: FS < 60 Docusate Sodium (Colace Cap*) 100 mg PO BID [facility] Last Admin: 01/31/18 09:28 Dose: 100 mg Guaifenesin (Mucinex*) 600 mg PO BID [facility] Last Admin: 01/31/18 09:28 Dose: 600 mg Heparin Sodium (Porcine) (Heparin Vial(*)) 5,000 units SUBCUT Q8HR [facility] Last Admin: 01/31/18 05:19 Dose: 5,000 units Hydrochlorothiazide (Hydrodiuril Tab*) 25 mg PO QAM [facility] Last Admin: 01/31/18 09:26 Dose: 25 mg Azithromycin 500 mg/ Sodium (Chloride) 250 mls @ 250 mls/hr IVPB Q24H [facility] Last Admin: 01/30/18 22:05 Dose: 250 mls/hr Cefepime HCl (Maxipime 1 Gm In Dextrose Duplex (*)) 1 gm in 50 mls @ 100 mls/ hr IV Q24H [facility] Insulin Human Lispro (Humalog*) 0 units SUBCUT ACHS [facility]; Protocol Last Admin: 01/31/18 09:23 Dose: 2 units Lisinopril (Prinivil Tab*) 20 mg PO QAM [facility] Last Admin: 01/31/18 09:28 Dose: 20 mg Magnesium Hydroxide (Milk Of Magnesia Liq*) 30 ml PO Q4H PRN PRN Reason: CONSTIPATION Metoprolol Tartrate (Lopressor Tab*) 100 mg PO BID [facility] Last Admin: 01/31/18 09:26 Dose: 100 mg Ondansetron HCl (Zofran Inj*) 4 mg IV Q4H PRN PRN Reason: NAUSEA/VOMITING Polyethylene Glycol/Electrolytes (Miralax*) 17 gm PO DAILY [facility] Last Admin: 01/31/18 09:28 Dose: 17 gm Sodium Chloride (Sodium Chloride Tab*) [facility] [place] Last Admin: 01/31/18 09:29 Dose: 1 gm Vital Signs - 8 hr 01/31/18 01/31/18 03:46 08:13 Temperature 97.3 F 97.9 F Pulse Rate 69 67 Respiratory 18 24 Rate Blood Pressure 149/76 146/82 (mmHg) O2 Sat by Pulse 93 94 Oximetry Oxygen Devices in Use Now: Nasal Cannula Appearance: Alert, partly up in bed. In good spirits, very friendly. Looks comfortable. Eyes: No Scleral Icterus Respiratory: Symmetrical Chest Expansion and Respiratory Effort, Clear to Auscultation, Clear to Percussion Cardiovascular: NL Sounds; No Murmurs; No JVD, RRR, No Edema, - Extremities: No Edema, No Clubbing, Cyanosis, - Skin: No Rash or Ulcers, No Nodules or Sclerosis, - Neurological: NL Sensation - Dense L hemiparesis as before. No tremor. Result Diagrams: 01/31/18 07:19 01/31/18 07:19 Microbiology and Other Data: Microbiology 01/30/18 21:28 Legionella Urinary Antigen - Final Urine Negative Legionella Antigen 01/30/18 21:28 Streptococcus pneumoniae Ag Screen - Final Urine Negative S. pneumo Antigen Assess/Plan/Problems-Billing Assessment: - Patient Problems (1) Pneumonia Current Visit: Yes Status: Acute Code(s): J18.9 - PNEUMONIA, UNSPECIFIED ORGANISM SNOMED Code(s): 029852075 Comment: Improved. WBC much lower 01/31. Continue cefepime + azith one more day,m consider d/c on quinolone 02/01 if stable. (2) Diabetes Current Visit: No Status: Acute Code(s): E11.9 - TYPE 2 DIABETES MELLITUS WITHOUT COMPLICATIONS SNOMED Code(s): 85709861 Comment: cont ISS/Lantus metformin on hold (3) Hemiparesis Current Visit: No Status: Acute Code(s): G81.90 - HEMIPLEGIA, UNSPECIFIED AFFECTING UNSPECIFIED SIDE SNOMED Code(s): 46381036 Comment: Chronic L hemiparesis due to CVA cont Plavix (4) HTN (hypertension) Current Visit: No Status: Acute Code(s): I10 - ESSENTIAL (PRIMARY) HYPERTENSION SNOMED Code(s): 02852433 Comment: cont Lisinopril, metoprolol, and thiazide..
[2018-01-31] MEDS: Cefepime 1 GM in Dextrose(*) 1 GM/50 ML BAG IV SCH (20:00)
[2018-01-31] MEDS: Acetaminophen TAB* 325 MG PO PRN (20:21)
[2018-01-31] MEDS: Azithromycin IV(*) 500 MG in NS 0.9% 250 ML* 250 ML IVPB SCH (23:04)
[2018-02-01] MEDS: Baclofen TAB* 20 MG PO SCH ×3 (06:26→21:42)
[2018-02-01] MEDS: Heparin VIAL(*) 5000 UNITS/ML VIAL (FIVE THOUSAND) SUBCUT SCH ×3 (06:26→21:42)
[2018-02-01] MEDS: Polyethylene Glycol 3350* 17 GM PACKET PO SCH (08:24)
[2018-02-01] MEDS: Cholecalciferol TAB* 1000 UNITS PO SCH (08:25)
[2018-02-01] MEDS: Atorvastatin* 10 MG TAB PO SCH (08:25)
[2018-02-01] MEDS: Sodium Chloride TAB* 1 GM PO SCH (08:25)
[2018-02-01] MEDS: Docusate CAP* 100 MG PO SCH ×2 (08:26→20:19)
[2018-02-01] MEDS: Hydrochlorothiazide TAB* 25 MG PO SCH (08:26)
[2018-02-01] MEDS: Clopidogrel TAB* 75 MG PO SCH (08:26)
[2018-02-01] MEDS: Lisinopril TAB* 10 MG PO SCH (08:26)
[2018-02-01] MEDS: Metoprolol Tartrate TAB* 100 MG TAB PO SCH ×2 (08:26→20:19)
[2018-02-01] MEDS: Insulin LISPRO* 1 UNITS UNIT SUBCUT SCH ×4 (08:27→20:55)
[2018-02-01] MEDS: guaiFENesin ER TAB 600 MG PO SCH ×2 (08:27→20:18)
[2018-02-01] MEDS ORDERED: Magnesium CITRATE* 300 ML BTL PO ONE (09:39)
--- NOTE | 2018-02-01 09:43 | PN ---
Subjective Date of Service: 02/01/18 Interval History: Cough improving. No SOB or chest pain. Constipated. Objective Active Medications: Acetaminophen (Tylenol Tab*) 650 mg PO Q4H PRN PRN Reason: FEVER/PAIN Last Admin: 01/31/18 20:21 Dose: 650 mg Al Hydrox/Mg Hydrox/Simethicone (Maalox Plus*) 30 ml PO Q6H PRN PRN Reason: INDIGESTION Albuterol (Ventolin 2.5 Mg/3 Ml Neb.Hoda*) 2.5 mg INH [id number] AWAKE PRN PRN Reason: sob/wheezing Atorvastatin Calcium (Lipitor*) 5 mg PO QAM [facility]; Protocol Last Admin: 02/01/18 08:25 Dose: 5 mg Baclofen (Lioresal Tab*) 20 mg PO 0700,1500,2300 [facility] Last Admin: 02/01/18 06:26 Dose: 20 mg Benzonatate (Tessalon Cap*) 100 mg PO BID PRN PRN Reason: COUGH Last Admin: 01/31/18 00:00 Dose: 100 mg Cholecalciferol (Vitamin D Tab*) [facility] Last Admin: 02/01/18 08:25 Dose: 2,000 units Clopidogrel Bisulfate (Plavix Tab*) 75 mg PO DAILY [facility] Last Admin: 02/01/18 08:26 Dose: 75 mg Dextrose (D50w Syringe 50 Ml*) 12.5 gm IV PUSH .FOR FS < 60 - SS PRN PRN Reason: FS < 60 Docusate Sodium (Colace Cap*) 100 mg PO BID [facility] Last Admin: 02/01/18 08:26 Dose: 100 mg Guaifenesin (Mucinex*) 600 mg PO BID [facility] Last Admin: 02/01/18 08:27 Dose: 600 mg Heparin Sodium (Porcine) (Heparin Vial(*)) 5,000 units SUBCUT Q8HR [facility] Last Admin: 02/01/18 06:26 Dose: 5,000 units Hydrochlorothiazide (Hydrodiuril Tab*) 25 mg PO QAM [facility] Last Admin: 02/01/18 08:26 Dose: 25 mg Azithromycin 500 mg/ Sodium (Chloride) 250 mls @ 250 mls/hr IVPB Q24H [facility] Last Admin: 01/31/18 23:04 Dose: 250 mls/hr Cefepime HCl (Maxipime 1 Gm In Dextrose Duplex (*)) 1 gm in 50 mls @ 100 mls/ hr IV Q24H [facility] Last Admin: 01/31/18 20:00 Dose: 100 mls/hr Insulin Human Lispro (Humalog*) 0 units SUBCUT ACHS [facility]; Protocol Last Admin: 02/01/18 08:27 Dose: 2 units Lisinopril (Prinivil Tab*) 20 mg PO QAM [facility] Last Admin: 02/01/18 08:26 Dose: 20 mg Magnesium Hydroxide (Milk Of Magnesia Liq*) 30 ml PO Q4H PRN PRN Reason: CONSTIPATION Metoprolol Tartrate (Lopressor Tab*) 100 mg PO BID [facility] Last Admin: 02/01/18 08:26 Dose: 100 mg Ondansetron HCl (Zofran Inj*) 4 mg IV Q4H PRN PRN Reason: NAUSEA/VOMITING Polyethylene Glycol/Electrolytes (Miralax*) 17 gm PO DAILY [facility] Last Admin: 02/01/18 08:24 Dose: 17 gm Sodium Chloride (Sodium Chloride Tab*) [facility] [place] Last Admin: 02/01/18 08:25 Dose: 1 gm Vital Signs - 8 hr 02/01/18 02/01/18 02/01/18 03:36 03:49 08:00 Temperature 98.0 F Pulse Rate 63 Respiratory 22 20 Rate Blood Pressure 150/86 (mmHg) O2 Sat by Pulse 92 92 94 Oximetry 02/01/18 08:17 Temperature 98.2 F Pulse Rate 57 Respiratory 20 Rate Blood Pressure 145/80 (mmHg) O2 Sat by Pulse 94 Oximetry Oxygen Devices in Use Now: None Appearance: Alert, partly up in bed. In good spirits. Looks comfortable. Eyes: No Scleral Icterus Respiratory: Symmetrical Chest Expansion and Respiratory Effort, Clear to Auscultation, Clear to Percussion Cardiovascular: NL Sounds; No Murmurs; No JVD, RRR, No Edema, - Extremities: No Edema, No Clubbing, Cyanosis, - Skin: No Rash or Ulcers, No Nodules or Sclerosis, - Neurological: Alert and Oriented x 3, NL Sensation, - - Dense L hemiparesis as before. No tremor. Result Diagrams: 01/31/18 07:19 01/31/18 14:36 Microbiology and Other Data: Microbiology 01/30/18 21:28 Legionella Urinary Antigen - Final Urine Negative Legionella Antigen 01/30/18 21:28 Streptococcus pneumoniae Ag Screen - Final Urine Negative S. pneumo Antigen Assess/Plan/Problems-Billing Assessment: - Patient Problems (1) Pneumonia Current Visit: Yes Status: Acute Code(s): J18.9 - PNEUMONIA, UNSPECIFIED ORGANISM SNOMED Code(s): 259730328 Comment: Improved. T 100.3 01/31/18 20:17 hrs. Continue cefepime + azith, d/ c on quinolone 02/02 if stable. (2) Diabetes Current Visit: No Status: Acute Code(s): E11.9 - TYPE 2 DIABETES MELLITUS WITHOUT COMPLICATIONS SNOMED Code(s): 24655773 Comment: cont ISS/Lantus. FS glucose 148 02/01. metformin on hold (3) Hemiparesis Current Visit: No Status: Acute Code(s): G81.90 - HEMIPLEGIA, UNSPECIFIED AFFECTING UNSPECIFIED SIDE SNOMED Code(s): 47393649 Comment: Chronic L hemiparesis due to CVA cont Plavix (4) HTN (hypertension) Current Visit: No Status: Acute Code(s): I10 - ESSENTIAL (PRIMARY) HYPERTENSION SNOMED Code(s): 73717644 Comment: cont Lisinopril, metoprolol, and thiazide..
[2018-02-01] MEDS: guaiFENesin LIQ* 100 MG/5 ML UDC PO SCH ×4 (11:13→20:20)
[2018-02-01] MEDS: Cefepime 1 GM in Dextrose(*) 1 GM/50 ML BAG IV SCH (20:18)
[2018-02-01] MEDS: Azithromycin IV(*) 500 MG in NS 0.9% 250 ML* 250 ML IVPB SCH (21:42)
[2018-02-01] MEDS: Acetaminophen TAB* 325 MG PO PRN (21:42)
[2018-02-02] MEDS: Heparin VIAL(*) 5000 UNITS/ML VIAL (FIVE THOUSAND) SUBCUT SCH (06:43)
[2018-02-02] MEDS: Baclofen TAB* 20 MG PO SCH (06:43)
[2018-02-02] MEDS: Polyethylene Glycol 3350* 17 GM PACKET PO SCH (08:44)
[2018-02-02] MEDS: Insulin LISPRO* 1 UNITS UNIT SUBCUT SCH ×2 (08:46→12:15)
[2018-02-02] MEDS: Hydrochlorothiazide TAB* 25 MG PO SCH (08:46)
[2018-02-02] MEDS: Atorvastatin* 10 MG TAB PO SCH (08:47)
[2018-02-02] MEDS: guaiFENesin ER TAB 600 MG PO SCH (08:47)
[2018-02-02] MEDS: Docusate CAP* 100 MG PO SCH (08:49)
[2018-02-02] MEDS: Metoprolol Tartrate TAB* 100 MG TAB PO SCH (08:50)
[2018-02-02] MEDS: Clopidogrel TAB* 75 MG PO SCH (08:50)
[2018-02-02] MEDS: Lisinopril TAB* 10 MG PO SCH (08:51)
[2018-02-02] MEDS: Cholecalciferol TAB* 1000 UNITS PO SCH (08:52)
[2018-02-02] MEDS: guaiFENesin LIQ* 100 MG/5 ML UDC PO SCH (08:54)
[2018-02-02] MEDS: Sodium Chloride TAB* 1 GM PO SCH (09:10)
[2018-02-02] MEDS ORDERED: Levofloxacin TAB* 500 MG PO SCH (10:00)
--- NOTE | 2018-02-02 10:23 | PN ---
Progress Note - Progress Note Date of Service: 02/02/18 Note: Time spent on discharge 50 minutes.
--- NOTE | 2018-02-02 10:58 | TRS ---
TRANSFER SUMMARY: DATE OF TRANSFER: 02/02/2018 HISTORY OF PRESENT ILLNESS: This 67-year-old man was transferred from [facility] because of cough and fever. He had been sick for a few days. He had a productive cough and was s hort of breath. In the emergency room, his white count was over 14,000, his temperature was 101.3. He had a left lower lobe infiltrate. He was treated for sepsis and given IV fluids and antibiotics, mainly he was treated with cefepime. He had vancomycin in the beginning. He did very well in the [facility]. He was afebrile over the last 36 hours in the hospital. His white blood cell count came down to 7.5 on 01/31/18. He felt much better. His cough was almost gone by the time of discharge. FINAL DIAGNOSES: 1. Pneumonia. 2. Diabetes. 3. Hemiparesis from old stroke. 4. Hypertension. MEDICATIONS ON TRANSFER: 1. Benzonatate 100 mg b.i.d. 2. Guaifenesin liquid 10 mL q.i.d. through 02/06/18. 3. Levofloxacin 500 mg daily through 02/04/18. 4. Clopidogrel 75 mg daily. 5. Polyethylene glycol 17 g daily. 6. Acetaminophen 650 mg every 4 hours p.r.n. 7. Sodium chloride 1 g daily. 8. Sennosides 2 tabs daily at 7 p.m. 9. Vitamin D3 2000 units daily. 10. Metoprolol tartrate 100 mg b.i.d. 11. Ondansetron 4 mg p.o. every 6 hours p.r.n. 12. Lac-Hydrin 12% b.i.d. 13. Pravastatin 20 mg daily. 14. Baclofen 20 mg 0700, 1300, and 2300. 15. Metformin 850 mg b.i.d. 16. Lisinopril 20 mg daily. 17. Hydrochlorothiazide 25 mg daily. DISPOSITION: Patient is transferred to [facility]. [id number]/[facility] #: [id number]
[2018-02-02 13:21] VITALS: BP 156/71
[2018-02-02] MEDS ORDERED: metFORMIN* 850 MG TAB PO SCH (17:00)
== END 2018-02-02 13:51 | DRG 871 ==
LOC: ED 16:53 → MED 20:46
PROVIDERS: ADMIT Internal Medicine; ATTEND Internal Medicine
DX: A41.9 Sepsis, unspecified organism (principal); J18.9 Pneumonia, unspecified organism; I69.354 Hemiplegia and hemiparesis following cerebral infarction affecting left non-dominant side; E11.9 Type 2 diabetes mellitus without complications; I73.00 Raynaud's syndrome without gangrene; E78.5 Hyperlipidemia, unspecified; I25.10 Atherosclerotic heart disease of native coronary artery without angina pectoris; I11.9 Hypertensive heart disease without heart failure; K59.09 Other constipation; Z66 Do not resuscitate; Z99.3 Dependence on wheelchair; Z79.84 Long term (current) use of oral hypoglycemic drugs; Z79.1 Long term (current) use of non-steroidal anti-inflammatories (NSAID); Z79.02 Long term (current) use of antithrombotics/antiplatelets; Z79.899 Other long term (current) drug therapy; Z82.49 Family history of ischemic heart disease and other diseases of the circulatory system; Z83.3 Family history of diabetes mellitus
CPT/HCPCS: 36415; 71046; 80048; 80053; 81003; 81015; 83605; 83880; 84484; 85025; 85060; 85610; 85730; 87040; 87086; 87899; 93005; 99284; A9270-GY; G8978-GP-CN; G8979-GP-CN; G8980-GP-CN; J0456; J0692; J1644

== ENCOUNTER 2018-12-30 06:32 | Inpatient (IN) | payer MEDICARE, MEDICAID ==
[2018-12-30] MEDS ORDERED: NS 0.9% 1000 ML** 1,000 ML IV ONE (06:41)
[2018-12-30] MEDS ORDERED: Cefepime 2 GM in Dextrose(*) 2 GM/50 ML BAG IV ONE (06:53)
[2018-12-30 07:09] LABS: Hematocrit 46 % (42-52); Hemoglobin 15.3 g/dL (14.0-18.0); Mean Corpuscular HGB Conc 33 g/dL (31-36); Mean Corpuscular Hemoglobin 31 pg (27-31); Mean Corpuscular Volume 93 fL (80-94); Mean Platelet Volume 8.5 fL (7.4-10.4); Platelet Count 363 10^3/uL (150-450); Red Blood Count 4.96 10^6 /uL (4.18-5.48); Red Cell Distribution Width 15 % (10.5-15); White Blood Count 17.9 10^3/uL (3.5-10.8)
[2018-12-30 07:27] LABS: ABS Basophils 0.2 10^3/ul (0-0.2); ABS Eosinophils 0.3 10^3/ul (0-0.6); ABS Lymphocytes 1.8 10^3/ul (1.0-4.8); ABS Monocytes 2.4 10^3/ul (0-0.8); ABS Neutrophils 13.3 10^3/ul (1.5-7.7); Eosinophil % 1.8 %; Lymphocyte % 10.2 %
[2018-12-30 07:28] LABS: Albumin 3.6 g/dL (3.2-5.2); Albumin/Globulin Ratio 0.9 (1-3); BUN/Creatinine Ratio 31.3 (8-20); C Reactive Protein 68.63 mg/L (<8.01); Calcium 9.1 mg/dL (8.6-10.3); EGFR African American 49.8 (>60); EGFR Non-African American 41.2 (>60); Globulin 4.2 g/dL (2-4); Total Bilirubin 1.1 mg/dL (0.2-1.0); Total Protein 7.8 g/dL (6.4-8.9)
[2018-12-30 07:30] LABS: Troponin I 0.02 ng/mL (<0.04)
[2018-12-30 07:51] LABS: Urine Appearance Cloudy; Urine Bacteria 1+ (Absent); Urine Bilirubin Negative (Negative); Urine Blood Negative (Negative); Urine Color Yellow; Urine Glucose 1+(50 mg/dL) (Negative); Urine Ketones Negative (Negative); Urine Nitrite Negative (Negative); Urine Protein 2+(100 mg/dL) (Negative); Urine Red Blood Cell Absent (Absent); Urine Specific Gravity 1.014 (1.010-1.030); Urine Squamous Epithelial Cell Present (Absent); Urine Urobilinogen Negative (Negative); Urine White Blood Cell Trace(0-5/hpf) (Absent)
[2018-12-30] MEDS ORDERED: Levofloxacin 750 MG IVPREMIX(* 750 MG/150 ML BAG IVPB ONE (08:23)
--- NOTE | 2018-12-30 08:58 | ED ---
Altered Mental Status - HPI Summary HPI Summary: Patient is a 68-year-old male who lives at [facility] presenting by EMS with AMS. History of CVA with left hemiparesis, DM type II, Reynauds and HTN. Patient is a poor historian however states over the past 3 weeks he has been developing worsening cough and shortness of breath. He is also endorsing diffuse abdominal pain with coughing only. Last BM 4 days ago. He states this is fairly typical for him. He does not recall if it was loose or performed. [facility] staff state he has been more altered with a worsening wet cough over the past week. A chest x-ray and labs were obtained yesterday and he was seen here today for possible pneumonia. He denies any CP or SOB. Symptoms are not worse with lying flat or better with sitting upright. Patient appears confused , is oriented to person, and place but not to time or his surroundings. Patient is repeating himself frequently. Nonsmoker, denies any alcohol use. Currently a DNR. - History Of Current Complaint Chief Complaint: EDAltMentalStatus Stated Complaint: "GENERAL ILLNESS" PER PT Time Seen by Provider: 12/30/18 06:36 Hx Obtained From: EMS, Medical Records Hx From Patient Unobtainable Due To: Altered Mental Status Onset/Duration: Still Present Timing: Constant Severity Initially: Moderate Severity Currently: Moderate Character: Confusion Alleviating Factor(s): Nothing Associated Signs And Symptoms: Negative: Dizziness, Seizure, Nausea, Vomiting, Fever - Risk Factors Cardiac Risk Factors: Negative CVA Risk Factor: Negative - Allergies/Home Medications Allergies/Adverse Reactions: Allergies Allergy/AdvReac Type Severity Reaction Status Date / Time No Known Allergies Allergy Verified 12/30/18 07:48 Home Medications: Home Medications Nystatin TOP POWDER* 1 applic .ROUTE BID 12/30/18 [History Confirmed 12/30/18] PMH/Surg Hx/FS Hx/Imm Hx Previously Healthy: Yes Endocrine/Hematology History: Reports: Hx Diabetes Denies: Hx Systemic Lupus Erythematosus Cardiovascular History: Reports: Hx Hypertension Denies: Hx Congestive Heart Failure, Hx Pacemaker/ICD History: Reports: Hx Benign Prostatic Hyperplasia Denies: Hx Dialysis, Hx Renal Disease Musculoskeletal History: Reports: Hx Arthritis Denies: Hx Rheumatoid Arthritis Sensory History: Reports: Hx Contacts or Glasses - Reading, Hx Deafness - diminished hearing on right side Denies: Hx Hearing Aid Opthamlomology History: Reports: Hx Contacts or Glasses - Reading Neurological History: Reports: Hx CVA - in 2009, Hx Transient Ischemic Attacks ( TIA) Psychiatric History: Denies: Hx Eating Disorder, Hx Panic Disorder, Hx of Violent Episodes Against Others - Cancer History Hx Chemotherapy: No - Surgical History Surgery Procedure, Year, and Place: 1973 - Lt SHOULDER & CLAVICLE REPAIR. TONSILECTOMY. CATARACTS - JE[facility]-2008 - Immunization History Hx Pertussis Vaccination: Yes Immunizations Up to Date: Yes Infectious Disease History: Unable to Obtain/Confirm Infectious Disease History: Denies: Traveled Outside the [place] in Last 30 Days - Family History Known Family History: Positive: Other - Hx breast CA in mother - Social History Occupation: Unemployed, Disabled Lives: [facility] Alcohol Use: None Hx Substance Use: No Substance Use Type: Reports: None Hx Tobacco Use: No Smoking Status (MU): Never Smoked Tobacco Review of Systems Positive: Fever - low grade fevers. Negative: Chills, Fatigue, Skin Diaphoresis Negative: Palpitations, Chest Pain Positive: Shortness Of Breath - denies, but O2 demand is high, Cough - wet cough x 3 weeks - worsening Positive: Abdominal Pain - with cough only Genitourinary: Negative Positive: no symptoms reported, see HPI Negative: Arthralgia, Myalgia Neurological: Negative All Other Systems Reviewed And Are Negative: Yes Physical Exam Triage Information Reviewed: Yes Vital Signs On Initial Exam: Initial Vitals Temp Pulse Resp BP Pulse Ox 98.7 F 81 20 181/107 89 12/30/18 06:34 12/30/18 06:34 12/30/18 06:34 12/30/18 06:34 12/30/18 06:34 Completion Of Physical Exam Limited Due To: Altered Mental Status Appearance: Positive: Ill-Appearing Skin: Positive: Pale Head/Face: Positive: Normal Head/Face Inspection Eyes: Positive: EOMI, Conjunctiva Clear Neck: Positive: Supple, No Lymphadenopathy Respiratory/Lung Sounds: Positive: Rhonchi - bilateral Cardiovascular: Positive: RRR. Negative: Leg Edema Left, Leg Edema Right Abdomen Description: Positive: Other: - Distended Bowel Sounds: Positive: Present Musculoskeletal: Positive: Strength/ROM Intact Neurological: Positive: Unable to Assess Gait, Other - Oriented to person, not oriented to place or time, confused Psychiatric: Positive: Affect/Mood Appropriate Diagnostics - Vital Signs Vital Signs Temp Pulse Resp BP Pulse Ox 12/30/18 08:35 78 23 148/86 94 12/30/18 08:00 77 22 93 12/30/18 07:51 95 12/30/18 07:43 78 24 154/90 93 12/30/18 07:13 84 21 174/136 92 12/30/18 07:02 76 24 94 12/30/18 06:43 75 13 175/107 95 12/30/18 06:34 98.7 F 81 20 181/107 89 - Laboratory Lab Results: Lab Results 12/30/18 12/30/18 12/30/18 Range/Units 07:01 07:01 07:02 WBC 17.9 H (3.5-10.8) 10^3/uL RBC 4.96 (4.18-5.48) 10^6 /uL Hgb 15.3 (14.0-18.0) g/dL Hct 46 (42-52) % MCV 93 (80-94) fL MCH 31 (27-31) pg MCHC 33 (31-36) g/dL RDW 15 (10.5-15) % Plt Count 363 (150-450) 10^3/uL MPV 8.5 (7.4-10.4) fL Neut % (Auto) 74.0 % Lymph % (Auto) 10.2 % [place] % (Auto) 13.1 % Eos % (Auto) 1.8 % Baso % (Auto) 0.9 % Absolute Neuts (auto) 13.3 H (1.5-7.7) 10^3/ul Absolute Lymphs (auto) 1.8 (1.0-4.8) 10^3/ul Absolute Monos (auto) 2.4 H (0-0.8) 10^3/ul Absolute Eos (auto) 0.3 (0-0.6) 10^3/ul Absolute Basos (auto) 0.2 (0-0.2) 10^3/ul Absolute Nucleated RBC 0.0 10^3/ul Nucleated RBC % 0.0 Sodium 139 (135-145) mmol/L Potassium 4.0 (3.5-5.0) mmol/L Chloride 104 (101-111) mmol/L Carbon Dioxide 23 (22-32) mmol/L Anion Gap 12 H (2-11) mmol/L BUN 52 H (6-24) mg/dL Creatinine 1.66 H (0.67-1.17) mg/dL Est GFR ( Amer) 49.8 (>60) Est GFR (Non-Af Amer) 41.2 (>60) BUN/Creatinine Ratio 31.3 H (8-20) Glucose 233 H (70-100) mg/dL Lactic Acid (0.5-2.0) mmol/L Calcium 9.1 (8.6-10.3) mg/dL Total Bilirubin 1.10 H (0.2-1.0) mg/dL AST 15 (13-39) U/L ALT 12 (7-52) U/L Alkaline Phosphatase 54 (34-104) U/L Troponin I 0.02 (<0.04) ng/mL C-Reactive Protein 68.63 H (<8.01) mg/L B-Natriuretic Peptide 67 (<=100) pg/mL Total Protein 7.8 (6.4-8.9) g/dL Albumin 3.6 (3.2-5.2) g/dL Globulin 4.2 H (2-4) g/dL Albumin/Globulin Ratio 0.9 L (1-3) Urine Color Urine Appearance Urine pH (5-9) Ur Specific [place] (1.010-1.030) Urine Protein (Negative) Urine Ketones (Negative) Urine Blood (Negative) Urine Nitrate (Negative) Urine Bilirubin (Negative) Urine Urobilinogen (Negative) Ur Leukocyte Esterase (Negative) Urine WBC (Auto) (Absent) Urine RBC (Auto) (Absent) Ur Squamous Epith Cells (Absent) Urine Bacteria (Absent) Urine Glucose (Negative) 12/30/18 12/30/18 Range/Units 07:02 07:36 WBC (3.5-10.8) 10^3/uL RBC (4.18-5.48) 10^6 /uL Hgb (14.0-18.0) g/dL Hct (42-52) % MCV (80-94) fL MCH (27-31) pg MCHC (31-36) g/dL RDW (10.5-15) % Plt Count (150-450) 10^3/uL MPV (7.4-10.4) fL Neut % (Auto) % Lymph % (Auto) % [place] % (Auto) % Eos % (Auto) % Baso % (Auto) % Absolute Neuts (auto) (1.5-7.7) 10^3/ul Absolute Lymphs (auto) (1.0-4.8) 10^3/ul Absolute Monos (auto) (0-0.8) 10^3/ul Absolute Eos (auto) (0-0.6) 10^3/ul Absolute Basos (auto) (0-0.2) 10^3/ul Absolute Nucleated RBC 10^3/ul Nucleated RBC % Sodium (135-145) mmol/L Potassium (3.5-5.0) mmol/L Chloride (101-111) mmol/L Carbon Dioxide (22-32) mmol/L Anion Gap (2-11) mmol/L BUN (6-24) mg/dL Creatinine (0.67-1.17) mg/dL Est GFR ( Amer) (>60) Est GFR (Non-Af Amer) (>60) BUN/Creatinine Ratio (8-20) Glucose (70-100) mg/dL Lactic Acid 1.1 (0.5-2.0) mmol/L Calcium (8.6-10.3) mg/dL Total Bilirubin (0.2-1.0) mg/dL AST (13-39) U/L ALT (7-52) U/L Alkaline Phosphatase (34-104) U/L Troponin I (<0.04) ng/mL C-Reactive Protein (<8.01) mg/L B-Natriuretic Peptide (<=100) pg/mL Total Protein (6.4-8.9) g/dL Albumin (3.2-5.2) g/dL Globulin (2-4) g/dL Albumin/Globulin Ratio (1-3) Urine Color Yellow Urine Appearance Cloudy Urine pH 5.0 (5-9) Ur Specific [place] 1.014 (1.010-1.030) Urine Protein 2+(100 mg/dl) A (Negative) Urine Ketones Negative (Negative) Urine Blood Negative (Negative) Urine Nitrate Negative (Negative) Urine Bilirubin Negative (Negative) Urine Urobilinogen Negative (Negative) Ur Leukocyte Esterase Negative (Negative) Urine WBC (Auto) Trace(0-5/hpf) (Absent) Urine RBC (Auto) Absent (Absent) Ur Squamous Epith Cells Present A (Absent) Urine Bacteria 1+ A (Absent) Urine Glucose 1+(50 mg/dl) A (Negative) Result Diagrams: 12/30/18 07:02 12/30/18 07:01 Lab Statement: Any lab studies that have been ordered have been reviewed, and results considered in the medical decision making process. Re-Evaluation - Re-Evaluation First Eval Re-Evaluation Time: 08:25 Change: Unchanged - unchanged from arrival Altered Mental Statu Course/Dx - Course Course Of Treatment: The patient arrives by EMS. Vital signs are temp of 98.7, pulse 81, respirations 20, 89% on room air, 181/107. Patient was placed on 3LO2 which increased his sat to 93%. He does not wear O2 at home. He denies any CP. Physical exam: patient appears comfortable and non-diaphoretic. Pale with dry mucous membranes. Lungs rhonchorous throughout, regular rate and rhythm. Abdominal distention with no pain to palpation, however patient is complaining of pain to the bilateral upper quadrants. Last BM 4 days ago. Labs obtained. Patient has leukocytosis of 17,000, CRP 68 and glucose 233. UA negative for any WBCs or leukocytes. Patient was straight cathetered with 1000 mLs output. Distention of abdomen improved. Possibly obstructing, but no resistance with straight cath. Chest xray shows: Sepsis protocol was not initiated d/t afebrile and normal resp and pulse. Patient was given Levaquin and cefepime for an associated hospital acquired (patient is in fpc) PNA and fluids. BNP 67 and no edema bilaterally. AMS possibly secondary to PNA. Hx of stroke, but patient appears at his baseline for weakness/paresthesia s. Strep pneumo and legionaella urinary antigens negative. Patient is denying weakness, UA sxs or back pain. Denies rectal pain or difficulty with defecation or urinating. Discussed case with Dr. Martinez at 10:05am who agrees to accept for admission and suggests CTA to r/o PE. - Diagnoses Differential Diagnosis/HQI/PQRI: Metabolic Disorder Provider Diagnoses: Hypoxia, Cough, Fever, Increased oxygen demand - Provider Notifications Discussed Care Of Patient With: Mirtha Martinez Time Discussed With Above Provider: 10:05 Instructed by Provider To: Admit As Inpatient - Critical Care Time Critical Care Time: 30-74 min Discharge - Sign-Out/Discharge Documenting (check all that apply): Patient Departure Patient Received Moderate/Deep Sedation with Procedure: No - Discharge Plan Condition: Fair Disposition: ADMITTED TO [facility] Referrals: Jere Casas MD [Primary Care Provider] - - Billing Disposition and Condition Condition: FAIR Disposition: Admitted to [facility]
[2018-12-30] MEDS ORDERED: Iodixanol* (CONTRAST) 320 MG/ML 100 ML SDV IV ONE (10:24)
[2018-12-30] MEDS ORDERED: Acetaminophen TAB* 325 MG PO PRN (12:09)
[2018-12-30] MEDS: Baclofen TAB* 10 MG PO SCH ×3 (12:52→21:06)
[2018-12-30] MEDS: Apixaban* 5 MG TAB PO SCH ×2 (12:52→21:07)
[2018-12-30] MEDS: Benzocaine/Menthol LOZ* 1 LOZENGE PO PRN ×2 (12:52→21:07)
[2018-12-30] MEDS: Tamsulosin CAP* 0.4 MG PO SCH (12:52)
--- NOTE | 2018-12-30 13:56 | HP ---
CC: Jere Casas MD* HISTORY AND PHYSICAL: DATE OF ADMISSION: 12/30/18 PRIMARY CARE PROVIDER: Jere Casas MD. ATTENDING PHYSICIAN: Mirtha Martinez MD* (dictated by FELIPE Varma). CHIEF COMPLAINT: "I'm having trouble breathing." HISTORY OF PRESENT ILLNESS: Mr. Keen is a 68-year-old male with a past medical history of left hemiparesis due to CVA in 2008, hypertension, diabetes mellitus , obesity, hyperlipidemia, who presented to the ER today with complaints of 3 weeks of intermittent shortness of breath and coughing. He is difficult to get a clear history from because he is fixated on the fact that his mouth is dry and he needs lozenges brought in from [place] or constant p.o. water intake, but he does note that this has been occurring for approximately 3 weeks intermittently. He also notes that he has had left lower leg pain intermittently x3 weeks. He has been told that he has been having occasional fevers, although he reports no subjective fevers. He denies difficulty with urination, but is noted to have 1 liter of retained urine in the bladder requiring straight cath. He denies chest pain. He does complain of abdominal pain as well as intermittent bowel incontinence, which he has had for years. While in the ER, the patient received a full workup, which included blood work, imaging, 1 L of IV fluid bolus, Levaquin 750, and cefepime [address] scan revealed a pulmonary embolism. He was straight cathed early on in the ER and was noted to have over 1 L of urine output. The patient does note history of BPH, which he is not on treatment for. Hospitalist team was asked to evaluate the patient for admission. PAST MEDICAL HISTORY: 1. Left hemiplegia due to CVA in 2008. 2. Diabetes mellitus type 2. 3. Hypertension. 4. Hyperlipidemia. 5. BPH. 6. Obstructive sleep apnea. 7. Obesity. 8. Depression. PAST SURGICAL HISTORY: Left shoulder and clavicle, tonsils, bilateral cataracts. HOME MEDICATIONS: 1. Acetaminophen 650 mg p.o. q.4 hours p.r.n. pain. 2. Baclofen 20 mg p.o. 0700, 1500, 2300. 3. Cholecalciferol 2000 units p.o. q.a.m. 4. Clopidogrel 75 mg p.o. daily. 5. Hydrochlorothiazide 25 mg p.o. q.a.m. 6. Lisinopril 20 mg p.o. q.a.m. 7. Metformin 850 mg p.o. b.i.d. 8. Metoprolol tartrate 100 mg p.o. b.i.d. 9. Nystatin topical powder 1 application to buttocks b.i.d. 10. Polyethylene glycol 3350, 17 g p.o. daily. 11. Pravastatin 20 mg p.o. q.a.m. ALLERGIES: No known drug allergies. FAMILY HISTORY: Positive for breast cancer. SOCIAL HISTORY: The patient denies current or previous use of tobacco. He states that he used to drink alcohol but quit in 1997. He denies use of illicit drugs. He resides at [facility]. In the event that he is unable to make his own medical decisions, he has appointed his sister, Michelle Santana, to be his surrogate decision maker. REVIEW OF SYSTEMS: A 10-point review of systems was performed and all the pertinent positives and negatives are in the HPI. All other systems are negative. PHYSICAL EXAMINATION GENERAL: Mr. Keen is a well-developed, well-nourished, obese, older white male , who is lying on his back in bed with head of bed elevated. He is frequently coughing, although he does not appear to be in respiratory distress. He appears mildly uncomfortable but is in no acute distress. VITAL SIGNS: Temperature 98.1 temporal, heart rate 84, respiratory rate 18, oxygen saturation 91% on 2 L, blood pressure 121/83. HEENT: Extraocular movements are intact. Sclerae are without icterus. Hearing is grossly intact. Oral mucous membranes are moist. There are no lesions. The pharynx is clear. RESPIRATORY: Symmetrical chest expansion without use of accessory muscles. The left upper lung field has faint expiratory wheezing. All other areas clear to auscultation. CARDIOVASCULAR: Regular rate and rhythm with S1, S2 present. No murmurs, rubs , clicks, or gallops. ABDOMEN: Obese. There appears to be some distention in the suprapubic area. Bowel sounds are noted in all quadrants. The abdomen is soft. There is diffuse tenderness to palpation, which appears to be worse at the suprapubic area. There is no hepatosplenomegaly. Negative Klein sign. EXTREMITIES: Skin is warm and smooth bilaterally. There is no clubbing, cyanosis, or edema. The patient does not move the left upper or lower extremities. There is no tenderness to palpation in the calf area of both lower extremities. NEUROLOGIC: The patient is awake. He is alert and oriented x3. He moves the right side without difficulty but is noted to have hemiparesis of the left side. DIAGNOSTIC STUDIES/LAB DATA: Chest x-ray, 12/30/18, impression: Cardiomegaly with likely chronic changes in the left costophrenic angle. Abdominal x-ray, 12/30/18, impression: Unremarkable bowel gas patterns, negative for significant retained stool within the colon. Suggestion of early staghorn calculus formation at the left kidney compared with the 2014 exam. Severe left and [id number] right hip osteoarthritis, interval worsening compared with a CT from 09/04/15. CTA chest, 12/30/18, impression: Pulmonary emboli with large pulmonary emboli in the right main pulmonary artery extending to the lobar branches in the right lower lobe and right middle lobe, sub-segmental branch of the left upper lobe also demonstrates filling defects, atherosclerotic aorta without evidence of aortic dissection or aneurysmal dilation. Laboratory Data: WBC 17.9. BUN 52, creatinine 1.66, glucose 233. Total bilirubin 1.10, CRP 68.63. BNP 67. ASSESSMENT AND PLAN: Mr. Keen is a 68-year-old male with past medical history of left hemiparesis, hypertension, hyperlipidemia, diabetes, obesity, who presented today due to intermittent shortness of breath x3 weeks and was found to have pulmonary embolism. He will be admitted observation for: 1. Pulmonary embolism: The patient is noted to have a pulmonary embolism on CAT scan. This would explain his leukocytosis, shortness of breath, and cough. He does not appear to be in respiratory distress. Vital sings are stable. He was given antibiotics in the ER. These will be discontinued. The patient will be given oxygen as needed. He will be started on apixaban 5 b.i.d. starting now. 2. Urinary retention: The patient has suprapubic tenderness as well as distention in the area. He was noted to have greater than 1 L removed via straight cath prior to admission. It is also noted that he has EDGARDO with creatinine elevated to 1.66. The patient has a history of benign prostatic hyperplasia but is on no medications for this. The patient will be started on Flomax. Bladder scans q.6 hours have been ordered. 3. Hypertension: Home medications, hydrochlorothiazide, metoprolol and lisinopril will be continued. 4. Diabetes mellitus: Home medication, metformin b.i.d. will be continued starting tomorrow. 5. Hyperlipidemia: Continue statin. 6. History of cerebrovascular accident: Continue home medication Plavix. 7. Code status: DNR. 8. DVT prophylaxis: The patient has been placed on apixaban 5 b.i.d. for treatment of pulmonary embolism. TIME SPENT: Approximately 60 minutes was spent on this admission, greater than half of that time was spent with the patient obtaining history, performing a physical, and reviewing the plan of care. The case has been reviewed with my attending, Dr. Martinez, who is in agreement with the plan of care. FELIPE ARREDONDO [id number]/[facility] #: [id number] [email or web address]
[2018-12-30] MEDS ORDERED: Metoprolol Tartrate TAB* 100 MG TAB PO SCH (21:00)
[2018-12-30] MEDS ORDERED: Apixaban* 5 MG TAB PO SCH (21:00)
[2018-12-30] MEDS: Nystatin TOP POWDER* 15 GM BTL TOPICAL SCH (21:45)
--- NOTE | 2018-12-30 22:27 | PN ---
Progress Note - Progress Note Date of Service: 12/30/18 Note: Patient incontinent of small amount of urine, PVR > 900. Refusing [place]. Will offer straight cath x 1
[2018-12-30] MEDS ORDERED: NS 0.9% 500 ML* 500 ML IV ONE (23:37)
[2018-12-31] MEDS ORDERED: Dextrose 50% Syringe 50 ML* 25 GM/50 ML SYRINGE IV PUSH PRN (03:02)
[2018-12-31] MEDS: Baclofen TAB* 10 MG PO SCH ×3 (06:17→22:38)
[2018-12-31 06:37] LABS: Hematocrit 37 % (42-52); Hemoglobin 12.5 g/dL (14.0-18.0); Mean Corpuscular HGB Conc 34 g/dL (31-36); Mean Corpuscular Hemoglobin 31 pg (27-31); Mean Corpuscular Volume 92 fL (80-94); Mean Platelet Volume 8.5 fL (7.4-10.4); Platelet Count 249 10^3/uL (150-450); Red Blood Count 3.99 10^6 /uL (4.18-5.48); Red Cell Distribution Width 15 % (10.5-15); White Blood Count 11.6 10^3/uL (3.5-10.8)
[2018-12-31 06:54] LABS: Albumin/Globulin Ratio 0.9 (1-3); BUN/Creatinine Ratio 39.2 (8-20); Calcium 8.3 mg/dL (8.6-10.3); EGFR Non-African American 54.6 (>60); Globulin 3.2 g/dL (2-4); Potassium 3.2 mmol/L (3.5-5.0); Total Bilirubin 0.9 mg/dL (0.2-1.0); Total Protein 6.2 g/dL (6.4-8.9)
[2018-12-31] MEDS ORDERED: metFORMIN* 850 MG TAB PO SCH (09:00)
[2018-12-31] MEDS ORDERED: Lisinopril TAB* 10 MG PO SCH (09:00)
[2018-12-31] MEDS ORDERED: Hydrochlorothiazide TAB* 25 MG PO SCH (09:00)
[2018-12-31] MEDS: Polyethylene Glycol 3350* 17 GM PACKET PO SCH (09:32)
[2018-12-31] MEDS: Nystatin TOP POWDER* 15 GM BTL TOPICAL SCH ×2 (09:33→20:41)
[2018-12-31] MEDS: Insulin LISPRO* 1 UNITS UNIT SUBCUT SCH ×3 (09:34→17:52)
[2018-12-31] MEDS: Metoprolol Tartrate TAB* 50 mg PO SCH ×2 (09:38→20:39)
[2018-12-31] MEDS: Tamsulosin CAP* 0.4 MG PO SCH (09:38)
[2018-12-31] MEDS: Clopidogrel TAB* 75 MG PO SCH (09:38)
[2018-12-31] MEDS: Apixaban* 5 MG TAB PO SCH ×2 (09:38→20:40)
[2018-12-31] MEDS: Atorvastatin* 10 MG TAB PO SCH (09:38)
[2018-12-31] MEDS: Cholecalciferol TAB* 1000 UNITS PO SCH (09:38)
--- NOTE | 2018-12-31 14:58 | PN ---
Subjective Date of Service: 12/31/18 Interval History: Mr. Keen is feeling ok today. He is feeling a bit better than yesterday, but cannot exactly recall the events from yesterday and is not sure what exactly brought him to the hospital. He denies CP or SOB. No abdominal pain or dysuria. Nursing reports urinary retention overnight requiring a Burnett. Was on 2L oxygen this morning but nurse was able to titrate to RA. Family History: Unchanged from Admission Social History: Unchanged from Admission Past Medical History: Unchanged from Admission Objective Active Medications: Acetaminophen (Tylenol Tab*) 650 mg PO Q4HR PRN PAIN Apixaban (Eliquis*) 5 mg PO BID CRISTINA Atorvastatin Calcium (Lipitor*) 5 mg PO QAM CRISTINA Baclofen (Lioresal Tab*) 20 mg PO 0700,1500,2300 CRISTINA Cholecalciferol (Vitamin D Tab*) 2,000 units PO QAM CRISTINA Clopidogrel Bisulfate (Plavix Tab*) 75 mg PO DAILY CRISTINA Dextrose (D50w Syringe 50 Ml*) 12.5 gm IV PUSH .FOR FS < 60 - SS PRN FS < 60 Insulin Human Lispro (Humalog*) 0 units SUBCUT AC CRISTINA Metoprolol Tartrate (Lopressor Tab*) 50 mg PO Q12HR CRISTINA Nystatin (Nystatin Top Powder*) 1 applic TOPICAL BID CRISTINA Polyethylene Glycol/Electrolytes (Miralax*) 17 gm PO DAILY CRISTINA Tamsulosin HCl (Flomax Cap*) 0.4 mg PO DAILY CRISTINA Throat Lozenges (Chloraseptic Jesus*) 1 jesus PO Q6H PRN SORE THROAT Vital Signs - 8 hr 12/31/18 11:12 Temperature 97.4 F Pulse Rate 73 Respiratory 22 Rate Blood Pressure 105/53 (mmHg) O2 Sat by Pulse 97 Oximetry Oxygen Devices in Use Now: None Appearance: Elderly male laying in bed in NAD Eyes: No Scleral Icterus Ears/Nose/Mouth/Throat: Mucous Membranes Moist Neck: NL Appearance and Movements; NL JVP, Trachea Midline Respiratory: Symmetrical Chest Expansion and Respiratory Effort, Clear to Auscultation Cardiovascular: NL Sounds; No Murmurs; No JVD, RRR Abdominal: NL Sounds; No Tenderness; No Distention Extremities: - - Mild nonpitting BLE Neurological: - - Oriented to self and place Lines/Tubes/Other Access: Clean, Dry and Intact Peripheral IV Nutrition: Taking PO's Result Diagrams: 12/31/18 06:30 12/31/18 06:30 Assess/Plan/Problems-Billing Assessment: Mr. Keen is a 68 yo M with PMH of CVA with resulting left hemiplegia, DM2, HTN, HLD, BPH, and KADI; who presented to the ED with c/o SOB and was found to have a PE. - Patient Problems (1) Pulmonary embolism Code(s): I26.99 - OTHER PULMONARY EMBOLISM WITHOUT ACUTE COR PULMONALE Comment : - Presented with leukocytosis, SOB, and cough - CTA shows bilateral PE - Previously requiring 2L oxygen, now sating well on RA - Unprovoked, so will likely need lifetime anticoagulation - Continue Eliquis (2) Acute urinary retention Code(s): R33.8 - OTHER RETENTION OF URINE Comment: - Retained 1L in the ED and was straight cathed; retaining again overnight and Burnett was placed - Likely post-renal, secondary to BPH - Suspect that this may be a chronic issue, incidentally found - Remove Burnett today and trial void; if he fails trial void, he will need to be d/c'd back to SNF with Burnett - Continue tamsulosin (3) EDGARDO (acute kidney injury) Code(s): N17.9 - ACUTE KIDNEY FAILURE, UNSPECIFIED Comment: - Resolving - Post-renal, secondary to outlet obstruction (4) Diabetes Code(s): E11.9 - TYPE 2 DIABETES MELLITUS WITHOUT COMPLICATIONS Comment: - Glucose under generally poor control - A1c pending - Hold metformin - Continue Lispro SS (5) HTN (hypertension) Code(s): I10 - ESSENTIAL (PRIMARY) HYPERTENSION Comment: - Normotensive, SBP 100s - Hold lisinopril and HCTZ d/t EDGARDO - Continue metoprolol (6) History of CVA with residual deficit Code(s): I69.30 - UNSPECIFIED SEQUELAE OF CEREBRAL INFARCTION Comment: - Left sided hemiplegia at baseline - Continue Eliquis, Plavix (7) DVT prophylaxis Comment: - Eliquis (8) DNR (do not resuscitate) Comment: Status and Disposition: Inpatient. Anticipate d/c back to [facility] when medically stable, likely tomorrow. Attending: Kendall Aguilar
[2018-12-31] MEDS ORDERED: Potassium Chlor TAB* 20 MEQ TAB.ER PO ONE (18:19)
--- NOTE | 2018-12-31 23:51 | PN ---
Progress Note - Progress Note Date of Service: 12/31/18 Note: Once again urinary retention - Burnett ordered to be put back in
[2019-01-01 06:51] LABS: ABS Eosinophils 0.5 10^3/ul (0-0.6); ABS Lymphocytes 1.7 10^3/ul (1.0-4.8); ABS Monocytes 1.4 10^3/ul (0-0.8); ABS Neutrophils 7.2 10^3/ul (1.5-7.7); Eosinophil % 4.6 %; Hematocrit 36 % (42-52); Hemoglobin 12.1 g/dL (14.0-18.0); Lymphocyte % 15.6 %; Mean Corpuscular HGB Conc 34 g/dL (31-36); Mean Corpuscular Hemoglobin 31 pg (27-31); Mean Corpuscular Volume 93 fL (80-94); Mean Platelet Volume 8.4 fL (7.4-10.4); Nucleated Red Blood Cells % 0.1; Platelet Count 219 10^3/uL (150-450); Red Blood Count 3.84 10^6 /uL (4.18-5.48); Red Cell Distribution Width 15 % (10.5-15); White Blood Count 10.9 10^3/uL (3.5-10.8)
[2019-01-01 07:09] LABS: BUN/Creatinine Ratio 34.7 (8-20); Calcium 8.7 mg/dL (8.6-10.3); EGFR African American 88.4 (>60); Potassium 3.5 mmol/L (3.5-5.0)
[2019-01-01 09:07] VITALS: BP 114/58
[2019-01-01] MEDS: Apixaban* 5 MG TAB PO SCH (09:23)
[2019-01-01] MEDS: Clopidogrel TAB* 75 MG PO SCH (09:23)
[2019-01-01] MEDS: Baclofen TAB* 10 MG PO SCH ×2 (09:23→14:32)
[2019-01-01] MEDS: Polyethylene Glycol 3350* 17 GM PACKET PO SCH (09:23)
[2019-01-01] MEDS: Insulin LISPRO* 1 UNITS UNIT SUBCUT SCH ×2 (09:23→13:01)
[2019-01-01] MEDS: Cholecalciferol TAB* 1000 UNITS PO SCH (09:23)
[2019-01-01] MEDS: Metoprolol Tartrate TAB* 50 mg PO SCH (09:24)
[2019-01-01] MEDS: Atorvastatin* 10 MG TAB PO SCH (09:24)
[2019-01-01] MEDS: Tamsulosin CAP* 0.4 MG PO SCH (09:24)
[2019-01-01] MEDS: Nystatin TOP POWDER* 15 GM BTL TOPICAL SCH (09:39)
[2019-01-01] MEDS ORDERED: Apixaban* 5 MG TAB PO ONE (10:11)
--- NOTE | 2019-01-01 12:12 | DS ---
CC: Dr. Jere Casas* DATE OF ADMISSION: 12/30/2018. DATE OF DISCHARGE: 01/01/2019. PRIMARY CARE PHYSICIAN: Dr. Jere Casas. ATTENDING PHYSICIAN: Dr. Kendall Aguilar* (dictated by Lissy Chávez NP). PRIMARY DIAGNOSES: 1. Acute pulmonary embolism. 2. Acute urinary retention. 3. Acute kidney injury. SECONDARY DIAGNOSES: 1. Diabetes. 2. Hypertension. 3. History of CVA with residual left-sided hemiplegia. STUDIES WHILE IN THE HOSPITAL: 1. Chest x-ray on 12/30/2018, reads as cardiomegaly with likely chronic changes in left costophrenic angle. 2. Abdomen x-ray on 12/30/2018, reads as unremarkable bowel gas pattern. Negative for significant retained stool within the colon. Suggestion of early staghorn calculus formation at the left kidney, new compared with the 2013 exam. Unremarkable soft tissue contours. Severe left and moderately severe right hip osteoarthritis interval worsening compared with CT from 09/04/2015. 3. Chest/thorax CTA on 12/30/2018, reads as pulmonary emboli with large pulmonary emboli in the right main pulmonary artery extending to the lobar branches in the right lower lobe and right middle lobe. Subsegmental branch of the left upper lobe also demonstrates filling defects. Atherosclerotic aorta without evidence of aortic dissection or aneurysmal dilatation. HISTORY OF PRESENT ILLNESS/HOSPITAL COURSE: Mr. Keen is a 68-year-old male with a past medical history of CVA with resulting left hemiplegia, type 2 diabetes, hypertension, hyperlipidemia, BPH, and obstructive sleep apnea who presented to the emergency room on 12/30/2018 with complaints of shortness of breath. Please see the history and physical by FELIPE Varma for a complete summary of the events leading up to this hospitalization. In short, the patient was at [facility]. He reported three weeks of intermittent shortness of breath and cough. He also had had some intermittent left lower leg pain for approximately three weeks. In the emergency room, he was noted to have urinary retention and required straight cathing with a resulting one liter of retained urine being drained. He had imaging as noted above. Vital signs were stable. Lab work was remarkable for leukocytosis with a white blood count of 17.9 and elevated creatinine indicative of an acute kidney injury and an elevated CRP at 68. Because of the findings of new pulmonary emboli on CTA, the patient was admitted by the Hospitalist Service. The patient was started on Eliquis for treatment of his pulmonary emboli. He initially was placed on two liters of oxygen and was saturating in the mid 90s, so it is somewhat unclear if he actually needed this oxygen, though ultimately was able to be weaned off and is now saturating well on room air. He denied any further leg pain, shortness of breath, or cough. I will note that the patient is somewhat of a poor historian, so it is difficult to get an accurate history. After straight cathing, the patient continued to retain urine and a Burnett catheter was placed on 12/30/2018. We attempted a trial void on 2018 which the patient failed, so a Burnett was reinserted. This morning, the patient denies any complaints. On exam, he has left hemiplegia which is consistent with his baseline, otherwise no new neuro deficits. The heart has a regular rate and rhythm without murmurs, rubs or gallops. Lungs are clear to auscultation without rhonchi, wheezes, or rubs. There is minimal nonpitting edema to bilateral extremities. Assessment is otherwise benign. Mr. Keen is stable for discharge today. Vital signs are as follows: Temperature 98.1, heart rate 67, respiratory rate 18, oxygen saturation 96 percent on room air, blood pressure 114/58. DISCHARGE MEDICATIONS: New medications: 1. Eliquis 10 mg p.o. b.i.d. times 7 days, then 5 mg b.i.d. 2. Tamsulosin 0.4 mg p.o. daily. Changed medications: Metoprolol Tartrate 50 mg p.o. b.i.d. (previously was 100 mg b.i.d.). Continued medications: 1. Acetaminophen 650 mg p.o. q.4 hours prn pain. 2. Baclofen 20 mg p.o. t.i.d. 3. Cholecalciferol 2,000 units p.o. daily. 4. Plavix 75 mg p.o. daily. 5. Nystatin powder one application topically b.i.d. 6. MiraLax 17 gm p.o. daily. 7. Pravastatin 20 mg p.o. daily. 8. Metformin 850 mg p.o. b.i.d. Discontinued medications: 1. Lisinopril. 2. Hydrochlorothiazide. DISCHARGE PLAN: Mr. Keen will be discharged back to [facility]. Medications are noted above. The patient will need to be 10 mg of Eliquis b.i.d. for seven days, today being day one of seven, and then can transition to 5 mg b.i.d. thereafter. He will need to remain on this indefinitely at this point and further determination of anticoagulation can be determined by his primary care provider. I will note that I have also kept the patient on his Plavix at this point due to his history of CVA. This will also need to be re-evaluated due to the addition of Eliquis because of the increased risk of bleeding. He has been started on Tamsulosin for urinary retention. Again, he does have a Burnett catheter in place at this time which he will be discharged with. I would recommend another trial void in approximately two to three days and potentially the addition of another agent for BPH such as Finasteride. I have changed the dosing of the patient's Metoprolol. He has had some soft blood pressures while here in the hospital and has been on 50 mg b.i.d. of Metoprolol Tartrate. He has done well on this. Systolic pressures at this point are in the 110s, so I would continue this dosing at this point. I have discontinued his Lisinopril and Hydrochlorothiazide as resuming these medications would certainly drop his pressure. He can continue his other usual medications as noted above and I have not made any further changes. I would recommend a repeat BMP in one week to re-evaluate the patient's creatinine. The acute kidney injury he developed was postrenal secondary to obstruction, so this should be resolved with the placement of the Burnett, though creatinine should be rechecked. I would recommend frequent monitoring of the patient's blood pressure due to changes in his medication. He will need to follow-up with his primary care provider in four to seven days. The patient should return to the emergency room or nearest hospital for any worsening of symptoms, shortness of breath, lightheadedness, dizziness, chest discomfort, high fevers, chills, night sweats, loss of consciousness or any other worrisome signs or symptoms. ACTIVITY: Activity will be as tolerated, though the patient is nonambulatory at baseline. DIET: Diet will be heart-healthy, mechanical ground per recommendations from Speech Therapy. CONDITION ON DISCHARGE: Stable. DISPOSITION: [facility] facility, [facility]. This is a summarized report of a complex medical history and hospital stay. For further details, please see the entire medical record. TIME SPENT: Approximately 45 minutes were spent on this discharge. LISSY CHÁVEZ NP [id number]/CPS #: [id number] JIM
== END 2019-01-01 15:50 | DRG 176 ==
LOC: ED 06:32 → MED 13:39 → OBSVTOIN 12-31 14:00
PROVIDERS: ADMIT Internal Medicine; ATTEND Internal Medicine
PROC: 0T9B70Z Drainage of Bladder with Drainage Device, Via Natural or Artificial Opening (ICD-10-PCS; principal; 2018-12-30)
DX: I26.99 Other pulmonary embolism without acute cor pulmonale (principal); N17.9 Acute kidney failure, unspecified; I69.354 Hemiplegia and hemiparesis following cerebral infarction affecting left non-dominant side; E11.9 Type 2 diabetes mellitus without complications; I73.00 Raynaud's syndrome without gangrene; I10 Essential (primary) hypertension; Z66 Do not resuscitate; N40.0 Benign prostatic hyperplasia without lower urinary tract symptoms; M19.90 Unspecified osteoarthritis, unspecified site; H91.91 Unspecified hearing loss, right ear; R09.02 Hypoxemia; E78.5 Hyperlipidemia, unspecified; G47.33 Obstructive sleep apnea (adult) (pediatric); I70.0 Atherosclerosis of aorta; F32.9 Major depressive disorder, single episode, unspecified; R33.9 Retention of urine, unspecified; I95.9 Hypotension, unspecified; E66.9 Obesity, unspecified; Z68.31 Body mass index [BMI] 31.0-31.9, adult; Z98.42 Cataract extraction status, left eye; Z98.41 Cataract extraction status, right eye; Z79.02 Long term (current) use of antithrombotics/antiplatelets; Z79.01 Long term (current) use of anticoagulants; Z79.84 Long term (current) use of oral hypoglycemic drugs
CPT/HCPCS: 36415; 71046; 71275; 74018; 80048; 80053; 81003; 81015; 83036; 83605; 83880; 84484; 85025; 85027; 86140; 87086; 87899; 99285; A9270-GY; G0378; J0692; Q9967

== ENCOUNTER 2019-08-19 20:55 | Emergency (ER) | payer MEDICARE, MEDICAID ==
--- NOTE | 2019-08-19 21:34 | ED ---
Altered Mental Status - HPI Summary HPI Summary: 68 year old male presents with AMS for the past 3 weeks. Had a fever today. Has had a cough for a while. When asked where he has pain he states that it is all over. He has left-sided neuro deficit at baseline. His only alert to person only. History is limited due to mental status. per EMS he also had sinus congestion. LEVEL 5 CAVET due to mental status. per EMS patient is normal alert and orientated which he is not here. - History Of Current Complaint Chief Complaint: EDWeakness Stated Complaint: AMS PER EMS Time Seen by Provider: 08/19/19 21:16 - Allergies/Home Medications Allergies/Adverse Reactions: Allergies Allergy/AdvReac Type Severity Reaction Status Date / Time No Known Allergies Allergy Verified 08/19/19 21:14 PMH/Surg Hx/FS Hx/Imm Hx Endocrine/Hematology History: Reports: Hx Diabetes Denies: Hx Systemic Lupus Erythematosus Cardiovascular History: Reports: Hx Hypertension Denies: Hx Congestive Heart Failure, Hx Pacemaker/ICD History: Reports: Hx Benign Prostatic Hyperplasia Denies: Hx Dialysis, Hx Renal Disease Musculoskeletal History: Reports: Hx Arthritis Denies: Hx Rheumatoid Arthritis Sensory History: Reports: Hx Deafness - diminished hearing on right side Denies: Hx Contacts or Glasses, Hx Hearing Aid Opthamlomology History: Denies: Hx Contacts or Glasses Neurological History: Reports: Hx CVA - in 2008, Hx Transient Ischemic Attacks ( TIA) Psychiatric History: Denies: Hx Eating Disorder, Hx Panic Disorder, Hx of Violent Episodes Against Others - Cancer History Hx Chemotherapy: No - Surgical History Surgery Procedure, Year, and Place: 1973 - SHOULDER & CLAVICLE REPAIR. TONSILECTOMY. CATARACTS - [facility]-2008 Infectious Disease History: No Infectious Disease History: Denies: Traveled Outside the [place] in Last 30 Days - Family History Known Family History: Positive: Other - Hx breast CA in mother - Social History Alcohol Use: None Hx Substance Use: No Substance Use Type: Reports: None Hx Tobacco Use: No Smoking Status (MU): Never Smoked Tobacco Review of Systems Positive: Fever Positive: Cough Negative: Abdominal Pain Positive: Weakness All Other Systems Reviewed And Are Negative: Yes Physical Exam Triage Information Reviewed: Yes Vital Signs On Initial Exam: Initial Vitals Temp Pulse Resp BP Pulse Ox 99.9 F 87 20 142/87 95 08/19/19 20:59 08/19/19 20:59 08/19/19 20:59 08/19/19 20:59 08/19/19 20:59 Vital Signs Reviewed: Yes Appearance: Positive: Well-Appearing Skin: Positive: Warm, Dry Head/Face: Positive: Normal Head/Face Inspection Eyes: Positive: Normal, KRYSTEN, Conjunctiva Clear. Negative: EOMI - unable to follow eye command ENT: Positive: Normal ENT inspection, Pharynx normal, TMs normal Respiratory/Lung Sounds: Positive: Clear to Auscultation, Breath Sounds Present Cardiovascular: Positive: Normal, RRR Abdomen Description: Positive: Nontender, Soft Bowel Sounds: Positive: Present Neurological: Positive: Other - weakness noted to left side, unable to move left arm or leg, able to smile. Negative: Sensory/Motor Intact, Alert, Oriented to Person Place, Time - person only, CN Intact II-III Psychiatric: Positive: Normal - [place] Coma Scale Best Eye Response: 4 - Spontaneous Best Motor Response: 6 - Obeys Commands Best Verbal Response: 4 - Confused Coma Scale Total: 14 Procedures - Sedation Patient Received Moderate/Deep Sedation with Procedure: No Diagnostics - Vital Signs Vital Signs Temp Pulse Resp BP Pulse Ox 08/19/19 21:10 88 08/19/19 20:59 99.9 F 87 20 142/87 95 - Laboratory Result Diagrams: 08/19/19 21:40 08/19/19 21:40 Lab Statement: Any lab studies that have been ordered have been reviewed, and results considered in the medical decision making process. - Radiology chest Radiology Interpretation Completed By: ED Physician Summary of Radiographic Findings: no pneumonia - CT brain CT Interpretation Completed By: Radiologist Summary of CT Findings: IMPRESSION: No acute intracranial findings. - EKG No standard instances Cardiac Rate: NL EKG Rhythm: Sinus Rhythm EKG Comparison: No Significant Change Summary of EKG Findings: sinus rhythm Altered Mental Statu Course/Dx - Course Course Of Treatment: 68 year old male presents with AMS for the past 3 weeks. Had a fever today. Has had a cough for a while. When asked where he has pain he states that it is all over. He has left-sided neuro deficit at baseline. His only alert to person only. History is limited due to mental status. per EMS he also had sinus congestion. LEVEL 5 CAVET due to mental status. on exam alert to person only. has left side neuro deficit. lungs CTA. wbc 19. crp elevated. chest xray shows no pneumonia. urine shows potential uti. gave dose of rocephin. discussed with dr bey and lisa who state can send patient back. will place on augmentin will wait for final culture. patient understand and agrees with plan. - Diagnoses Differential Diagnosis/HQI/PQRI: Metabolic Disorder, Other - uti Provider Diagnoses: UTI (urinary tract infection), Confusion Discharge ED - Sign-Out/Discharge Documenting (check all that apply): Patient Departure - Discharge Plan Condition: Good Disposition: HOME Prescriptions: Amoxicillin/Clavulanate TAB* [Augmentin TAB 500 mg*] 500 mg PO BID #10 tab Patient Education Materials: Urinary Tract Infection in Men (ED) Referrals: Jere Casas MD [Primary Care Provider] - Additional Instructions: take Augmentin twice a day for 5 days Encourage plenty of fluids Return to ED if develop any new or worsening symptoms - Billing Disposition and Condition Condition: GOOD Disposition: Home
[2019-08-19 21:52] LABS: Hematocrit 42 % (42-52); Hemoglobin 14.7 g/dL (14.0-18.0); Mean Corpuscular HGB Conc 35 g/dL (31-36); Mean Corpuscular Hemoglobin 32 pg (27-31); Mean Corpuscular Volume 91 fL (80-94); Mean Platelet Volume 8.7 fL (7.4-10.4); Platelet Count 242 10^3/uL (150-450); Red Cell Distribution Width 15 % (10-15); White Blood Count 19.8 10^3/uL (3.5-10.8)
[2019-08-19 22:26] LABS: ABS Basophils 0.1 10^3/ul (0-0.2); ABS Eosinophils 0.1 10^3/ul (0-0.6); ABS Lymphocytes 1.6 10^3/ul (1.0-4.8); ABS Monocytes 2.5 10^3/ul (0-0.8); ABS Neutrophils 15.5 10^3/ul (1.5-7.7); Eosinophil % 0.5 %; Lymphocyte % 8.2 %
[2019-08-19 22:27] LABS: Troponin I 0.01 ng/mL (<0.03)
[2019-08-19 22:28] LABS: Albumin 3.7 g/dL (3.2-5.2); Albumin/Globulin Ratio 0.9 (1-3); BUN/Creatinine Ratio 19.3 (8-20); C Reactive Protein 79.03 mg/L (<8.01); Calcium 9.3 mg/dL (8.6-10.3); EGFR African American 110.8 (>60); EGFR Non-African American 91.6 (>60); Globulin 3.9 g/dL (2-4); Potassium 3.9 mmol/L (3.5-5.0); Total Protein 7.6 g/dL (6.4-8.9)
[2019-08-20 00:17] LABS: Influenza A Molecular NEGATIVE (Negative); Influenza B Molecular NEGATIVE (Negative)
[2019-08-20 00:51] LABS: Urine Appearance Cloudy; Urine Bilirubin Negative (Negative); Urine Blood 2+ (Negative); Urine Color Yellow; Urine Glucose Negative (Negative); Urine Ketones Trace (Negative); Urine Nitrite Negative (Negative); Urine Protein 1+(30 mg/dL) (Negative); Urine Specific Gravity 1.025 (1.010-1.030); Urine Urobilinogen Negative (Negative)
[2019-08-20 00:55] LABS: Urine Bacteria 2+ (Absent); Urine Red Blood Cell 3+(>10/hpf) (Absent); Urine White Blood Cell 3+(>20/hpf) (Absent)
[2019-08-20] MEDS ORDERED: cefTRIAXone(*) 1 GM in NS 0.9% 50 ML* 50 ML IVPB ONE (01:30)
[2019-08-20 04:21] VITALS: BP 162/88
== END 2019-08-20 04:20 | disposition home or self-care (01) ==
LOC: ED 20:55
DX: N39.0 Urinary tract infection, site not specified (principal); E11.9 Type 2 diabetes mellitus without complications; I10 Essential (primary) hypertension; N40.0 Benign prostatic hyperplasia without lower urinary tract symptoms; H91.91 Unspecified hearing loss, right ear; Z86.73 Personal history of transient ischemic attack (TIA), and cerebral infarction without residual deficits
CPT/HCPCS: 36415; 70450; 71045; 80053; 81003; 81015; 83605; 84443; 84484; 85025; 86140; 87086; 93005; 96365; 99284; J0696

== ENCOUNTER → 2019-09-24 04:44 | Emergency (ER) | payer MEDICARE, MEDICAID ==
--- NOTE | 2019-09-24 04:50 | ED ---
HPI Chest Pain - HPI Summary HPI Summary: This pt is an 86 Y/O M presenting to [facility] with a CC of L anterior CP that occurred for about 3-4 minutes at 0355 and was rated a 7/10 in severity. He denies any N/V, SOB, headaches, fevers, and chills. He states that he is currently immobile due to a stroke that he suffered. He states that he has no pertinent cardiac Hx but states that he had a previous stroke. He has no aggravating or alleviating factors. Currently he states that his CP is resolved. - History of Current Complaint Chief Complaint: EDChestPainROMI Time Seen by Provider: 09/24/19 04:44 Hx Obtained From: Patient Onset/Duration: Started Minutes Ago - 50, Resolved Time of Onset: 03:55 Timing: Lasting Minutes - 3-4 Initial Severity: Severe - 7/10 Current Severity: None Pain Intensity: 0 Pain Scale Used: 0-10 Numeric Chest Pain Location: Discrete at:, Left Anterior Chest Pain Radiates: No Aggravating Factor(s): Nothing Alleviating Factor(s): Nothing Associated Signs and Symptoms: Negative: Headaches, Shortness of Breath, Fever, Chills, Nausea, Vomiting - Additional Pertinent History Primary Care Physician: [id number] - Allergy/Home Medications Allergies/Adverse Reactions: Allergies Allergy/AdvReac Type Severity Reaction Status Date / Time No Known Allergies Allergy Verified 08/19/19 21:14 PMH/Surg Hx/FS Hx/Imm Hx Previously Healthy: Yes Endocrine/Hematology History: Reports: Hx Diabetes Denies: Hx Systemic Lupus Erythematosus Cardiovascular History: Reports: Hx Hypertension Denies: Hx Congestive Heart Failure, Hx Pacemaker/ICD History: Reports: Hx Benign Prostatic Hyperplasia Denies: Hx Dialysis, Hx Renal Disease Musculoskeletal History: Reports: Hx Arthritis Denies: Hx Rheumatoid Arthritis Sensory History: Reports: Hx Deafness - diminished hearing on right side Denies: Hx Contacts or Glasses, Hx Hearing Aid Opthamlomology History: Denies: Hx Contacts or Glasses Neurological History: Reports: Hx CVA - in 2008, Hx Transient Ischemic Attacks ( TIA) Psychiatric History: Denies: Hx Eating Disorder, Hx Panic Disorder, Hx of Violent Episodes Against Others - Cancer History Hx Chemotherapy: No Hx Radiation Therapy: No - Surgical History Surgical History: Yes Surgery Procedure, Year, and Place: 1973 - SHOULDER & CLAVICLE REPAIR. TONSILECTOMY. CATARACTS - [facility]-2009 - Immunization History Immunizations Up to Date: Yes Infectious Disease History: No Infectious Disease History: Denies: Traveled Outside the [place] in Last 30 Days - Family History Known Family History: Positive: Other - Hx breast CA in mother - Social History Occupation: Disabled Lives: [facility] [employer] [facility] [employer] Alcohol Use: None Hx Substance Use: No Substance Use Type: Reports: None Hx Tobacco Use: No Smoking Status (MU): Never Smoked Tobacco Review of Systems Negative: Fever, Chills Positive: Chest Pain Negative: Shortness Of Breath Negative: Vomiting, Nausea Negative: Headache All Other Systems Reviewed And Are Negative: Yes Physical Exam - Summary Physical Exam Summary: Appearance: Well-appearing, Well-nourished, lying in bed comfortably Skin: Warm, dry, no obvious rash Eyes: sclera anicteric, no conjunctival pallor ENT: mucous membranes moist, pharynx appears normal Neck: Supple, nontender Respiratory: Clear to auscultation, no signs of respiratory distress Cardiovascular: Normal S1, S2. No murmurs. Normal distal pulses in tibial and radial bilaterally. Abdomen: Soft, nontender, normal active bowel sounds present Musculoskeletal: Normal, Strength/ROM Intact Neurological: A&Ox3, awake and alert, mentation is normal, speech is fluent and appropriate Psychiatric: affect is normal, does not appear anxious or depressed Triage Information Reviewed: Yes Vital Signs On Initial Exam: Temp Pulse Resp BP SpO2 FiO2 Vital Signs Reviewed: Yes Procedures - Sedation Patient Received Moderate/Deep Sedation with Procedure: No Diagnostics - Laboratory Result Diagrams: 09/24/19 05:19 09/24/19 05:18 Lab Statement: Any lab studies that have been ordered have been reviewed, and results considered in the medical decision making process. - EKG 0458 Cardiac Rate: Bradycardia - 55 BPM EKG Rhythm: Sinus Bradycardia ST Segment: Normal Ectopy: None Summary of EKG Findings: EKG at 0458 reveals sinus bradycardia with rate of 55 BPM, no acute changes, no ischemic changes. This EKG was reviewed and interpreted by Dr. Belle at 0500 09/24/2019. Chest Pain Course/Dx - Course Course Of Treatment: This pt is an 86 Y/O M presenting to [facility] with a CC of CP that occurred for about 3-4 minutes at 0355 and was rated a 7/10 in severity. He denies any N/V, SOB, headaches, fevers, and chills. He states that he is currently immobile due to a stroke that he suffered. He states that he has no pertinent cardiac Hx but states that he had a previous stroke. His PE had no acute abnormalities. He has no abnormalities on his labratory exams. His CXR shows no acute processes. He will be signed out to Dr. Nikolai Pineda MD from Dr. Nikolai Belle MD pending a second troponin and dispostion. He has a Dx of CP. - Diagnoses Provider Diagnoses: Chest pain Discharge ED - Sign-Out/Discharge Documenting (check all that apply): Sign-Out Patient Signing out patient TO: Nikolai Pineda - Discharge Plan Condition: Stable Disposition: HOME Patient Education Materials: Chest Pain (ED) Referrals: Jere Casas MD [Primary Care Provider] - Additional Instructions: RETURN TO THE EMERGENCY DEPARTMENT FOR CHANGING OR WORSENING SYMPTOMS. Follow up with your primary care physician in 2-3 days. - Billing Disposition and Condition Condition: STABLE Disposition: Home - Attestation Statements Document Initiated by Yeyo: Yes Documenting Scribe: Ricardo Rodrigues Provider For Whom Yeyo is Documenting (Include Credential): Nikolai Belle MD Scribe Attestation: Ricardo Madsen, scribed for Nikolai Belle MD on 09/25/19 at 0410. Scribe Documentation Reviewed: Yes Provider Attestation: The documentation as recorded by the Ricardo jiang accurately reflects the service I personally performed and the decisions made by me, Nikolai Belle MD Status of Scribe Document: Viewed
[2019-09-24 05:32] LABS: ABS Basophils 0.1 10^3/ul (0-0.2); ABS Eosinophils 0.5 10^3/ul (0-0.6); ABS Lymphocytes 2.5 10^3/ul (1.0-4.8); ABS Monocytes 1.1 10^3/ul (0-0.8); ABS Neutrophils 6.3 10^3/ul (1.5-7.7); Eosinophil % 4.6 %; Hematocrit 43 % (42-52); Hemoglobin 14.5 g/dL (14.0-18.0); Lymphocyte % 23.9 %; Mean Corpuscular HGB Conc 34 g/dL (31-36); Mean Corpuscular Hemoglobin 32 pg (27-31); Mean Corpuscular Volume 93 fL (80-94); Mean Platelet Volume 8.8 fL (7.4-10.4); Platelet Count 220 10^3/uL (150-450); Red Cell Distribution Width 15 % (10-15); White Blood Count 10.4 10^3/uL (3.5-10.8)
[2019-09-24 05:49] LABS: Albumin 3.6 g/dL (3.2-5.2); BUN/Creatinine Ratio 19.2 (8-20); Calcium 9.3 mg/dL (8.6-10.3); EGFR African American 128.2 (>60); EGFR Non-African American 105.9 (>60); Globulin 3.7 g/dL (2-4); Potassium 3.9 mmol/L (3.5-5.0); Total Bilirubin 0.8 mg/dL (0.2-1.0); Total Protein 7.3 g/dL (6.4-8.9)
[2019-09-24 05:51] LABS: Troponin I 0.01 ng/mL (<0.03)
--- NOTE | 2019-09-24 07:24 | ED ---
Progress - Progress Note Progress Note: Patient is a sign-out at 07:00 on 09/24/[address] Nikolai Belle MD to Dr. Nikolai Pineda MD at shift change, pending a repeat troponin, further workup, and disposition. His repeat troponin was negative and I spoke with him. He had no further chest pain and was anxious to get back. Patient will be discharged with a diagnosis of chest pain. Follow up with PCP in 2-3 days. Course/Dx - Diagnoses Provider Diagnoses: Chest pain Discharge ED - Sign-Out/Discharge Documenting (check all that apply): Patient Departure - Discharge, Receiving Sign-Out Receiving patient FROM: Nikolai Belle - Patient is a sign-out at 07:00 on 09/[address] Nikolai Belle MD to Dr. Nikolai Pineda MD at shift change, pending a repeat troponin, further workup, and disposition. - Discharge Plan Condition: Stable Disposition: HOME Patient Education Materials: Chest Pain (ED) Referrals: Jere Casas MD [Primary Care Provider] - Additional Instructions: RETURN TO THE EMERGENCY DEPARTMENT FOR CHANGING OR WORSENING SYMPTOMS. Follow up with your primary care physician in 2-3 days. - Billing Disposition and Condition Condition: STABLE Disposition: Home - Attestation Statements Document Initiated by Doreenibe: Yes Documenting Scribe: Madison Luna Provider For Whom Yeyo is Documenting (Include Credential): Nikolai Pineda MD Scribe Attestation: Madison Madsen, scribed for Nikolai Pineda MD on 09/24/19 at 1115. Scribe Documentation Reviewed: Yes Provider Attestation: The documentation as recorded by the Madison jiang accurately reflects the service I personally performed and the decisions made by me, Nikolai Pineda MD Status of Scribe Document: Viewed
[2019-09-24 10:23] VITALS: BP 166/91
== END | disposition home or self-care (01) ==
LOC: ED 04:44
DX: R07.9 Chest pain, unspecified (principal); E11.9 Type 2 diabetes mellitus without complications; I10 Essential (primary) hypertension; N40.0 Benign prostatic hyperplasia without lower urinary tract symptoms; H91.91 Unspecified hearing loss, right ear; Z86.73 Personal history of transient ischemic attack (TIA), and cerebral infarction without residual deficits
CPT/HCPCS: 36415; 71045; 80053; 83605; 84484; 85025; 93005; 99284

== ENCOUNTER 2023-10-09 15:46 | Inpatient (IN) ==
[2023-10-09] MEDS: Lactated Ringers 1000 ml BAG 1,000 ML IV ONE (17:14)
[2023-10-09 17:15] LABS: Hematocrit 36.8 % (38-53); Hemoglobin 12.1 g/dL (13.2-16.3); Mean Corpuscular Volume 96.9 fL (80-97); Mean Platelet Volume 8.2 fL (7.5-11.2); Platelet Count 392 10^3/uL (150-450); Red Blood Count 3.79 10^6/uL (4.06-5.63); Red Cell Distribution Width 14.8 % (12-17); White Blood Count 22.8 10^3/uL (3.6-10.2)
[2023-10-09 17:24] LABS: Urine Color Dark-Red
[2023-10-09 17:25] LABS: Urine Appearance Extra Turbid; Urine Specific Gravity 1.026 (1.002-1.030)
[2023-10-09 17:28] LABS: Urine Bacteria 3+ /HPF (Absent); Urine Red Blood Cell 3+(>10/hpf) /HPF (0-Trace); Urine White Blood Cell 3+(>20/hpf) /HPF (0-Trace)
[2023-10-09 17:38] LABS: Albumin 3.3 g/dL (3.2-5.2); Calcium 9.2 mg/dL (8.6-10.3); Creatinine, Serum 1.03 mg/dL (0.67-1.17); Globulin 3.4 g/dL (2-4); Total Bilirubin 0.8 mg/dL (0.2-1.0); Total Protein 6.7 g/dL (6.4-8.9); eGFR CKD-EPI 75.8 (>60)
[2023-10-09] MEDS: cefTRIAXone 1 gm/50 mL D5W 1 GM/50 ML BAG IV ONE (18:17)
[2023-10-09 18:20] LABS: ABS Basophils 0.1 10^3/uL (0.0-0.1); ABS Eosinophils 0.3 10^3/uL (0.0-0.5); ABS Lymphocytes 3.1 10^3/uL (1.0-4.8); ABS Monocytes 2.5 10^3/uL (0.0-1.1); ABS Neutrophils 16.8 10^3/uL (1.5-7.6); ABS Nucleated RBC 0.01 10^3/ul; Eosinophil % 1.4 %; Lymphocyte % 13.5 %
[2023-10-09] MEDS: Iodixanol (CONTRAST) 320 MG/ML 100 ML SDV IV ONE (18:43)
[2023-10-10 07:20] LABS: Calcium 8.7 mg/dL (8.6-10.3); Creatinine, Serum 0.83 mg/dL (0.67-1.17); HDL Cholesterol 33.8 mg/dL; Magnesium 1.7 mg/dL (1.9-2.7); eGFR CKD-EPI 91.3 (>60)
[2023-10-10 08:15] LABS: Hematocrit 35.9 % (38-53); Hemoglobin 11.8 g/dL (13.2-16.3); Mean Corpuscular Hemoglobin 31.9 pg (27-33); Mean Corpuscular Hgb Conc 32.9 g/dL (31-36); Mean Platelet Volume 8.3 fL (7.5-11.2); Platelet Count 300 10^3/uL (150-450); Red Cell Distribution Width 15.1 % (12-17); White Blood Count 16.8 10^3/uL (3.6-10.2)
[2023-10-10 09:51] LABS: ABS Basophils 0.1 10^3/uL (0.0-0.1); ABS Eosinophils 0.4 10^3/uL (0.0-0.5); ABS Lymphocytes 2.5 10^3/uL (1.0-4.8); ABS Monocytes 1.9 10^3/uL (0.0-1.1); ABS Neutrophils 11.8 10^3/uL (1.5-7.6); Eosinophil % 2.6 %
[2023-10-10] MEDS ORDERED: cefTRIAXone 2 gm/50 mL D5W 2 GM/50 ML BAG IV SCH (10:00)
[2023-10-10] MEDS: Magnesium Sulfate 2 gm BAG 2 GM/50 ML BAG IVPB ONE (10:46)
[2023-10-10] MEDS: Ampicillin ADVAN 2 GM in NS 0.9% 100 ML 100 ML IVPB SCH (11:19)
[2023-10-10] MEDS ORDERED: cefTRIAXone 1 gm/50 mL D5W 1 GM/50 ML BAG IV SCH (17:00)
[2023-10-11 05:58] LABS: ABS Eosinophils 0.4 10^3/uL (0.0-0.5); ABS Lymphocytes 1.6 10^3/uL (1.0-4.8); ABS Monocytes 1.5 10^3/uL (0.0-1.1); ABS Neutrophils 8.3 10^3/uL (1.5-7.6); ABS Nucleated RBC 0.01 10^3/ul; Eosinophil % 3.8 %; Hematocrit 31.6 % (38-53); Hemoglobin 10.3 g/dL (13.2-16.3); Lymphocyte % 13.4 %; Mean Corpuscular Hemoglobin 31.9 pg (27-33); Mean Corpuscular Hgb Conc 32.6 g/dL (31-36); Mean Platelet Volume 7.5 fL (7.5-11.2); Platelet Count 291 10^3/uL (150-450); Red Blood Count 3.22 10^6/uL (4.06-5.63); Red Cell Distribution Width 14.9 % (12-17); White Blood Count 11.9 10^3/uL (3.6-10.2)
[2023-10-11 06:51] LABS: Creatinine, Serum 0.83 mg/dL (0.67-1.17); Magnesium 1.7 mg/dL (1.9-2.7); Potassium 3.6 mmol/L (3.5-5.0); eGFR CKD-EPI 91.3 (>60)
[2023-10-11] MEDS: Magnesium Sulfate 2 gm BAG 2 GM/50 ML BAG IVPB ONE (08:08)
[2023-10-11] MEDS: Magnesium Sulfate 2 gm BAG 2 GM/50 ML BAG ONE (08:09)
[2023-10-11] MEDS ORDERED: Clotrimazole 1% CREAM 45 GM TOPICAL SCH (11:00)
[2023-10-11] MEDS ORDERED: Magnesium Hydroxide LIQ 30 ML UDC PO PRN (14:37)
[2023-10-11] MEDS: Polyethylene Glycol 3350 17 GM PACKET PO SCH (15:00)
[2023-10-11] MEDS ORDERED: Sulfur Hexaflouride MICROSPHR 25 MG VIAL ONE (15:14)
[2023-10-11] MEDS: Magnesium Hydroxide LIQ 30 ML UDC PO SCH (20:06)
[2023-10-11] MEDS: Senna TAB 8.6 mg TAB PO SCH (20:06)
[2023-10-11] MEDS: Clotrimazole 1% CREAM 30 gm TOPICAL SCH (20:09)
[2023-10-11] MEDS: cefTRIAXone 1 gm/50 mL D5W 1 GM/50 ML BAG IV SCH (22:48)
[2023-10-12 04:37] LABS: Hematocrit 31.4 % (38-53); Hemoglobin 10.7 g/dL (13.2-16.3); Mean Corpuscular Volume 94.3 fL (80-97); Mean Platelet Volume 7.9 fL (7.5-11.2); Platelet Count 342 10^3/uL (150-450); Red Blood Count 3.33 10^6/uL (4.06-5.63); Red Cell Distribution Width 14.7 % (12-17)
[2023-10-12 04:55] LABS: ABS Basophils 0.1 10^3/uL (0.0-0.1); ABS Eosinophils 0.3 10^3/uL (0.0-0.5); ABS Lymphocytes 1.5 10^3/uL (1.0-4.8); ABS Neutrophils 12.2 10^3/uL (1.5-7.6); Eosinophil % 1.7 %; Lymphocyte % 9.5 %
[2023-10-12 04:57] LABS: Calcium 8.2 mg/dL (8.6-10.3); Creatinine, Serum 0.78 mg/dL (0.67-1.17); Magnesium 1.9 mg/dL (1.9-2.7); Potassium 3.9 mmol/L (3.5-5.0)
[2023-10-12] MEDS: Ampicillin ADVAN 2 GM in NS 0.9% 100 ml BAG 100 ML IVPB SCH (10:32)
[2023-10-12] MEDS: Sulfamethox/Trimethoprim DS TAB 800/160 mg PO SCH (10:32)
[2023-10-13 06:23] LABS: Hematocrit 26.3 % (38-53); Hemoglobin 8.9 g/dL (13.2-16.3); Mean Corpuscular Hemoglobin 32.4 pg (27-33); Mean Corpuscular Hgb Conc 33.8 g/dL (31-36); Mean Corpuscular Volume 95.9 fL (80-97); Mean Platelet Volume 7.6 fL (7.5-11.2); Platelet Count 252 10^3/uL (150-450); Red Blood Count 2.75 10^6/uL (4.06-5.63); White Blood Count 12.5 10^3/uL (3.6-10.2)
[2023-10-13 06:31] LABS: ABS Basophils 0.1 10^3/uL (0.0-0.1); ABS Eosinophils 0.4 10^3/uL (0.0-0.5); ABS Monocytes 1.7 10^3/uL (0.0-1.1); ABS Neutrophils 8.3 10^3/uL (1.5-7.6); Eosinophil % 3.2 %; Lymphocyte % 16.3 %
[2023-10-13] MEDS: Magnesium Sulfate IV 1GM/100ML 1 GM/100 ML BAG IV ONE (07:50)
[2023-10-13 11:49] LABS: Calcium 7.9 mg/dL (8.6-10.3); Creatinine, Serum 1.03 mg/dL (0.67-1.17); Magnesium 1.8 mg/dL (1.9-2.7); Potassium 4.3 mmol/L (3.5-5.0); eGFR CKD-EPI 75.8 (>60)
[2023-10-13 12:09] LABS: Ferritin 198.8 ng/mL (24-336)
[2023-10-14 05:59] LABS: Hematocrit 29.5 % (38-53); Hemoglobin 9.9 g/dL (13.2-16.3); Mean Corpuscular Hemoglobin 31.9 pg (27-33); Mean Corpuscular Hgb Conc 33.4 g/dL (31-36); Mean Corpuscular Volume 95.6 fL (80-97); Mean Platelet Volume 7.8 fL (7.5-11.2); Platelet Count 276 10^3/uL (150-450); Red Blood Count 3.09 10^6/uL (4.06-5.63); Red Cell Distribution Width 15.1 % (12-17); White Blood Count 14.8 10^3/uL (3.6-10.2)
[2023-10-14 06:15] LABS: Calcium 7.9 mg/dL (8.6-10.3); Creatinine, Serum 1.08 mg/dL (0.67-1.17); Magnesium 2.1 mg/dL (1.9-2.7); Potassium 4.7 mmol/L (3.5-5.0); eGFR CKD-EPI 71.6 (>60)
[2023-10-14 06:51] LABS: ABS Basophils 0.1 10^3/uL (0.0-0.1); ABS Eosinophils 0.7 10^3/uL (0.0-0.5); ABS Lymphocytes 2.3 10^3/uL (1.0-4.8); ABS Monocytes 1.7 10^3/uL (0.0-1.1); ABS Neutrophils 10.1 10^3/uL (1.5-7.6); Eosinophil % 4.4 %; Lymphocyte % 15.5 %
[2023-10-14] MEDS: Ampicillin ADVAN 2 GM in NS 0.9% 100 ml BAG 100 ML IVPB SCH (15:38)
[2023-10-14] MEDS: Vancomycin 1,250 MG in NS 0.9% 250 ml 250 ML IVPB SCH (19:33)
[2023-10-15 05:57] LABS: ABS Eosinophils 0.7 10^3/uL (0.0-0.5); ABS Monocytes 1.5 10^3/uL (0.0-1.1); ABS Neutrophils 8.1 10^3/uL (1.5-7.6); ABS Nucleated RBC 0.01 10^3/ul; Eosinophil % 5.6 %; Hematocrit 27.4 % (38-53); Hemoglobin 9.3 g/dL (13.2-16.3); Lymphocyte % 15.9 %; Mean Corpuscular Hemoglobin 32.2 pg (27-33); Mean Corpuscular Hgb Conc 33.9 g/dL (31-36); Mean Corpuscular Volume 95.1 fL (80-97); Nucleated Red Blood Cells % 0.1 %/100WBC (0.0-0.8); Platelet Count 270 10^3/uL (150-450); Red Blood Count 2.88 10^6/uL (4.06-5.63); Red Cell Distribution Width 14.5 % (12-17); White Blood Count 12.3 10^3/uL (3.6-10.2)
[2023-10-15 06:15] LABS: Calcium 7.9 mg/dL (8.6-10.3); Creatinine, Serum 1.02 mg/dL (0.67-1.17); Magnesium 2.1 mg/dL (1.9-2.7); Potassium 4.8 mmol/L (3.5-5.0); eGFR CKD-EPI 76.6 (>60)
[2023-10-15] MEDS: Magnesium CITRATE LIQ 300 ML BTL PO ONE (11:02)
[2023-10-15 12:19] LABS: C Reactive Protein 44.29 mg/L (<8.01)
[2023-10-16 05:45] LABS: ABS Basophils 0.1 10^3/uL (0.0-0.1); ABS Eosinophils 0.2 10^3/uL (0.0-0.5); ABS Lymphocytes 1.6 10^3/uL (1.0-4.8); ABS Monocytes 1.1 10^3/uL (0.0-1.1); ABS Neutrophils 11.4 10^3/uL (1.5-7.6); Eosinophil % 1.3 %; Hematocrit 28.8 % (38-53); Hemoglobin 9.8 g/dL (13.2-16.3); Lymphocyte % 11.3 %; Mean Corpuscular Hemoglobin 32.2 pg (27-33); Mean Corpuscular Hgb Conc 33.9 g/dL (31-36); Mean Corpuscular Volume 94.7 fL (80-97); Mean Platelet Volume 8.1 fL (7.5-11.2); Platelet Count 316 10^3/uL (150-450); Red Blood Count 3.04 10^6/uL (4.06-5.63); Red Cell Distribution Width 14.9 % (12-17); White Blood Count 14.4 10^3/uL (3.6-10.2)
[2023-10-16 06:26] LABS: Calcium 8.1 mg/dL (8.6-10.3); Creatinine, Serum 1.08 mg/dL (0.67-1.17); Magnesium 1.9 mg/dL (1.9-2.7); Potassium 4.4 mmol/L (3.5-5.0); eGFR CKD-EPI 71.6 (>60)
[2023-10-16] MEDS: Morphine 2 MG/ML SYRINGE IV ONE (14:04)
[2023-10-16] MEDS ORDERED: Morphine 2 MG/ML SYRINGE IV ONE (16:25)
[2023-10-16 18:42] VITALS: BP 124/62
[2023-10-16] MEDS: Morphine 2 MG/ML SYRINGE ONE (19:06)
== END 2023-10-16 19:15 | DRG 698 ==
LOC: ED 15:46 → EDHOLD 15:46 → OBSVTOIN 18:39 → SUATTDRO 18:39 → SSU 22:50
PROVIDERS: ADMIT Internal Medicine; ATTEND Student in an Organized Health Care Education/Training Program

== ENCOUNTER 2023-10-22 22:09 | Observation (INO) ==
[2023-10-22] MEDS: Vancomycin 1,250 MG in NS 0.9% 250 ml 250 ML IVPB ONE (23:50)
[2023-10-22 23:57] LABS: Hematocrit 30.7 % (38-53); Hemoglobin 10.3 g/dL (13.2-16.3); Mean Corpuscular Hemoglobin 32.1 pg (27-33); Mean Corpuscular Hgb Conc 33.7 g/dL (31-36); Mean Corpuscular Volume 95.2 fL (80-97); Mean Platelet Volume 7.8 fL (7.5-11.2); Platelet Count 449 10^3/uL (150-450); Red Blood Count 3.22 10^6/uL (4.06-5.63); Red Cell Distribution Width 15.1 % (12-17); White Blood Count 20.2 10^3/uL (3.6-10.2)
[2023-10-23 00:22] LABS: Albumin 3.2 g/dL (3.2-5.2); Albumin/Globulin Ratio 0.9 (1-3); C Reactive Protein 26.47 mg/L (<8.01); Calcium 8.8 mg/dL (8.6-10.3); Creatinine, Serum 0.88 mg/dL (0.67-1.17); Globulin 3.6 g/dL (2-4); Potassium 3.7 mmol/L (3.5-5.0); Total Bilirubin 0.4 mg/dL (0.2-1.0); Total Protein 6.8 g/dL (6.4-8.9); Vancomycin Trough 8.4 mcg/mL; eGFR CKD-EPI 89.7 (>60)
[2023-10-23 01:27] LABS: ABS Basophils 0.1 10^3/uL (0.0-0.1); ABS Eosinophils 0.9 10^3/uL (0.0-0.5); ABS Lymphocytes 2.9 10^3/uL (1.0-4.8); ABS Monocytes 1.9 10^3/uL (0.0-1.1); ABS Neutrophils 14.4 10^3/uL (1.5-7.6); ABS Nucleated RBC 0.02 10^3/ul; Eosinophil % 4.2 %; Lymphocyte % 14.2 %; Nucleated Red Blood Cells % 0.1 %/100WBC (0.0-0.8)
[2023-10-23] MEDS ORDERED: Vancomycin per Pharmacy 1 EA NOTE FOLLOW UP SCH (03:00)
[2023-10-23] MEDS ORDERED: Dextrose 50% Syringe 50 ml 25 GM/50 ML SYRINGE IV PUSH PRN (03:18)
[2023-10-23] MEDS: Vancomycin 750 MG in NS 0.9% 250 ML IVPB SCH (09:57)
[2023-10-23] MEDS: Senna TAB 8.6 mg TAB PO SCH (09:59)
[2023-10-23] MEDS: Clotrimazole 1% CREAM 30 gm TOPICAL SCH (09:59)
[2023-10-23 10:20] LABS: ABS Basophils 0.1 10^3/uL (0.0-0.1); ABS Eosinophils 0.5 10^3/uL (0.0-0.5); ABS Lymphocytes 2.1 10^3/uL (1.0-4.8); ABS Monocytes 1.5 10^3/uL (0.0-1.1); ABS Neutrophils 12.2 10^3/uL (1.5-7.6); ABS Nucleated RBC 0.01 10^3/ul; Eosinophil % 3.1 %; Hemoglobin 10.7 g/dL (13.2-16.3); Lymphocyte % 12.8 %; Mean Corpuscular Hemoglobin 31.8 pg (27-33); Mean Corpuscular Hgb Conc 33.6 g/dL (31-36); Mean Corpuscular Volume 94.7 fL (80-97); Mean Platelet Volume 7.9 fL (7.5-11.2); Platelet Count 441 10^3/uL (150-450); Red Blood Count 3.38 10^6/uL (4.06-5.63); White Blood Count 16.5 10^3/uL (3.6-10.2)
[2023-10-23 10:55] LABS: Anion Gap 9 mmol/L (2-16); Blood Urea Nitrogen 22 mg/dL (6-24); CO2 Carbon Dioxide 25 mmol/L (22-32); Calcium 8.4 mg/dL (8.6-10.3); Chloride 103 mmol/L (101-111); Creatinine, Serum 0.83 mg/dL (0.67-1.17); Glucose 150 mg/dL (70-100); Sodium 137 mmol/L (135-145); eGFR CKD-EPI 91.3 (>60)
[2023-10-23 11:51] VITALS: BP 124/66
[2023-10-23] MEDS: Hyaluronidase HUMAN 15 UNIT in Sodium Chloride 0.9% 0.9 ML INTRADERM ONE (12:04)
[2023-10-24] MEDS ORDERED: Vancomycin Trough Check NOTE FOLLOW UP ONE (07:30)
== END 2023-10-23 12:20 ==
LOC: ED 22:09 → EDHOLD 22:09 → SUATTDRO 10-23 02:34 → EDHOLD 10-23 12:10
PROVIDERS: ADMIT Hospitalist; ATTEND Hospitalist

== ENCOUNTER 2023-10-27 07:27 | Inpatient (IN) ==
[2023-10-27 08:31] LABS: Hematocrit 36.5 % (38-53); Hemoglobin 11.9 g/dL (13.2-16.3); Mean Corpuscular Hemoglobin 31.1 pg (27-33); Mean Corpuscular Hgb Conc 32.7 g/dL (31-36); Mean Corpuscular Volume 94.9 fL (80-97); Mean Platelet Volume 7.5 fL (7.5-11.2); Platelet Count 423 10^3/uL (150-450); Red Blood Count 3.84 10^6/uL (4.06-5.63); Red Cell Distribution Width 15.1 % (12-17); White Blood Count 25.5 10^3/uL (3.6-10.2)
[2023-10-27 08:36] LABS: ABS Basophils 0.1 10^3/uL (0.0-0.1); ABS Eosinophils 0.2 10^3/uL (0.0-0.5); ABS Lymphocytes 1.7 10^3/uL (1.0-4.8); ABS Monocytes 2.2 10^3/uL (0.0-1.1); ABS Neutrophils 21.2 10^3/uL (1.5-7.6); ABS Nucleated RBC 0.01 10^3/ul; Eosinophil % 0.8 %; Lymphocyte % 6.7 %
[2023-10-27 09:17] LABS: ALT 10 U/L (7-52); Albumin 3.1 g/dL (3.2-5.2); Albumin/Globulin Ratio 0.8 (1-3); Alkaline Phosphatase 60 U/L (35-149); Anion Gap 12 mmol/L (2-16); Blood Urea Nitrogen 31 mg/dL (6-24); CO2 Carbon Dioxide 27 mmol/L (22-32); Chloride 100 mmol/L (101-111); Creatinine, Serum 1.15 mg/dL (0.67-1.17); Globulin 3.7 g/dL (2-4); Glucose 151 mg/dL (70-100); Sodium 139 mmol/L (135-145); Total Bilirubin 0.8 mg/dL (0.2-1.0); Total Protein 6.8 g/dL (6.4-8.9); eGFR CKD-EPI 66.4 (>60)
[2023-10-27 10:45] LABS: Potassium Redraw 3.8 mmol/L (3.5-5.0)
[2023-10-27] MEDS: Lactated Ringers 1000 ml BAG 1,000 ML IV ONE (13:48)
[2023-10-27 14:06] LABS: Urine Appearance Extra Turbid; Urine Bilirubin Negative (Negative); Urine Blood 3+ (Negative); Urine Glucose Negative (Negative); Urine Ketones 1+ (Negative); Urine Nitrite Negative (Negative); Urine Protein 2+ (>=100 mg/dL) (Negative); Urine Specific Gravity 1.029 (1.002-1.030); Urine Urobilinogen Negative (Negative); Urine pH 5.5 (5.0-8.0)
[2023-10-27 14:09] LABS: Urine Bacteria Absent /HPF (Absent); Urine Red Blood Cell 3+(>10/hpf) /HPF (0-Trace); Urine White Blood Cell 3+(>20/hpf) /HPF (0-Trace)
[2023-10-27 14:43] LABS: Hematocrit 35.5 % (38-53); Hemoglobin 11.6 g/dL (13.2-16.3); Mean Corpuscular Hemoglobin 31.2 pg (27-33); Mean Corpuscular Hgb Conc 32.5 g/dL (31-36); Mean Corpuscular Volume 95.9 fL (80-97); Mean Platelet Volume 7.5 fL (7.5-11.2); Platelet Count 380 10^3/uL (150-450); Red Cell Distribution Width 14.8 % (12-17); White Blood Count 21.1 10^3/uL (3.6-10.2)
[2023-10-27 14:44] LABS: ABS Basophils 0.1 10^3/uL (0.0-0.1); ABS Eosinophils 0.2 10^3/uL (0.0-0.5); ABS Lymphocytes 1.6 10^3/uL (1.0-4.8); ABS Monocytes 2.2 10^3/uL (0.0-1.1); Eosinophil % 1.1 %; Lymphocyte % 7.6 %
[2023-10-27] MEDS: cefTRIAXone 1 gm/50 mL D5W 1 GM/50 ML BAG IV ONE (14:49)
[2023-10-27 14:50] LABS: C Reactive Protein 157.56 mg/L (<8.01)
[2023-10-27 14:55] LABS: Urine Color Yellow
[2023-10-27] MEDS ORDERED: Vancomycin per Pharmacy 1 EA NOTE FOLLOW UP SCH (16:00)
[2023-10-27] MEDS: Vancomycin 1,250 MG in NS 0.9% 250 ml 250 ML IVPB ONE (17:27)
[2023-10-27 18:30] LABS: Vancomycin Random 4.8 mcg/mL
[2023-10-27] MEDS: Vancomycin 1,250 MG in NS 0.9% 250 ml 250 ML IVPB SCH (19:38)
[2023-10-27] MEDS ORDERED: Senna/Docusate 8.6/50 mg (NF) TAB PO SCH (21:00)
[2023-10-27] MEDS: Senna TAB 8.6 mg TAB PO SCH (22:34)
[2023-10-27] MEDS: Nystatin TOP POWDER 15 GM BTL TOPICAL SCH (22:34)
[2023-10-27] MEDS: Clotrimazole 1% CREAM 30 gm TOPICAL SCH (22:43)
[2023-10-28 08:33] LABS: Hematocrit 32.2 % (38-53); Hemoglobin 10.8 g/dL (13.2-16.3); Mean Corpuscular Hemoglobin 31.3 pg (27-33); Mean Corpuscular Hgb Conc 33.4 g/dL (31-36); Mean Corpuscular Volume 93.5 fL (80-97); Mean Platelet Volume 7.5 fL (7.5-11.2); Platelet Count 377 10^3/uL (150-450); Red Blood Count 3.44 10^6/uL (4.06-5.63); Red Cell Distribution Width 15.1 % (12-17); White Blood Count 21.8 10^3/uL (3.6-10.2)
[2023-10-28 08:41] LABS: ABS Basophils 0.1 10^3/uL (0.0-0.1); ABS Eosinophils 0.4 10^3/uL (0.0-0.5); ABS Lymphocytes 1.6 10^3/uL (1.0-4.8); ABS Monocytes 2.5 10^3/uL (0.0-1.1); ABS Neutrophils 17.3 10^3/uL (1.5-7.6); Eosinophil % 1.7 %; Lymphocyte % 7.3 %
[2023-10-28 09:15] LABS: Calcium 8.3 mg/dL (8.6-10.3); Creatinine, Serum 1.55 mg/dL (0.67-1.17); eGFR CKD-EPI 46.4 (>60)
[2023-10-28] MEDS ORDERED: Senna TAB 8.6 mg TAB PO PRN (09:18)
[2023-10-28] MEDS: cefTRIAXone 1 gm/50 mL D5W 1 GM/50 ML BAG IV SCH (10:13)
[2023-10-28] MEDS: Lactated Ringers 1000 ml BAG 1,000 ML IV ONE (11:22)
[2023-10-28] MEDS: Calcium Polycarbophil 625mg TB PO SCH (14:02)
[2023-10-28] MEDS: Nystatin TOP POWDER 15 GM BTL TOPICAL SCH (14:44)
[2023-10-28] MEDS: Lactated Ringers 1000 ml BAG 1,000 ML IV SCH (15:09)
[2023-10-28] MEDS: Potassium Chloride LIQUID 20 MEQ/15 ML LIQUID PO ONE (18:08)
[2023-10-28] MEDS: KCL 20 MEQ/100 ML IVPREMIX 20 MEQ/100 ML BAG IV SCH (18:08)
[2023-10-28 18:28] LABS: Magnesium 1.7 mg/dL (1.9-2.7)
[2023-10-29 07:03] LABS: Anion Gap 9 mmol/L (2-16); Blood Urea Nitrogen 40 mg/dL (6-24); CO2 Carbon Dioxide 23 mmol/L (22-32); Calcium 8.2 mg/dL (8.6-10.3); Chloride 107 mmol/L (101-111); Glucose 107 mg/dL (70-100); Magnesium 1.7 mg/dL (1.9-2.7); Sodium 139 mmol/L (135-145); eGFR CKD-EPI 41.5 (>60)
[2023-10-29 07:23] LABS: Hematocrit 32.8 % (38-53); Hemoglobin 10.9 g/dL (13.2-16.3); Mean Corpuscular Hemoglobin 31.7 pg (27-33); Mean Corpuscular Hgb Conc 33.2 g/dL (31-36); Mean Corpuscular Volume 95.6 fL (80-97); Mean Platelet Volume 7.8 fL (7.5-11.2); Platelet Count 322 10^3/uL (150-450); Red Blood Count 3.43 10^6/uL (4.06-5.63); White Blood Count 18.6 10^3/uL (3.6-10.2)
[2023-10-29 07:26] LABS: ABS Basophils 0.1 10^3/uL (0.0-0.1); ABS Eosinophils 1.7 10^3/uL (0.0-0.5); ABS Lymphocytes 2.1 10^3/uL (1.0-4.8); ABS Monocytes 1.8 10^3/uL (0.0-1.1); ABS Nucleated RBC 0.02 10^3/ul; Eosinophil % 8.9 %; Lymphocyte % 11.2 %; Nucleated Red Blood Cells % 0.1 %/100WBC (0.0-0.8)
[2023-10-29] MEDS: Magnesium Sulfate 2 gm BAG 2 GM/50 ML BAG IVPB ONE (09:10)
[2023-10-29] MEDS: Lactated Ringers 1000 ml BAG 1,000 ML IV SCH (09:13)
[2023-10-29] MEDS: Potassium Chlor 20 meq TAB.ER PO ONE (16:18)
[2023-10-29] MEDS: KCL 20 MEQ/100 ML IVPREMIX 20 MEQ/100 ML BAG IV SCH (16:43)
[2023-10-29] MEDS: Potassium Chloride LIQUID 20 MEQ/15 ML LIQUID PO ONE (16:43)
[2023-10-29] MEDS ORDERED: Vancomycin Trough Check NOTE FOLLOW UP ONE (18:30)
[2023-10-30 08:28] LABS: ABS Basophils 0.1 10^3/uL (0.0-0.1); ABS Eosinophils 1.2 10^3/uL (0.0-0.5); ABS Lymphocytes 1.5 10^3/uL (1.0-4.8); ABS Monocytes 1.4 10^3/uL (0.0-1.1); ABS Neutrophils 9.8 10^3/uL (1.5-7.6); Eosinophil % 8.6 %; Hematocrit 30.2 % (38-53); Mean Corpuscular Hemoglobin 31.2 pg (27-33); Mean Corpuscular Hgb Conc 33.2 g/dL (31-36); Mean Corpuscular Volume 94.2 fL (80-97); Mean Platelet Volume 7.5 fL (7.5-11.2); Platelet Count 296 10^3/uL (150-450)
[2023-10-30 08:57] LABS: Calcium 8.1 mg/dL (8.6-10.3); Creatinine, Serum 1.09 mg/dL (0.67-1.17); Magnesium 1.7 mg/dL (1.9-2.7); Potassium 3.9 mmol/L (3.5-5.0); eGFR CKD-EPI 70.8 (>60)
[2023-10-30] MEDS: Magnesium Sulfate 2 gm BAG 2 GM/50 ML BAG IVPB ONE (12:15)
[2023-10-30] MEDS: Potassium Chloride LIQUID 20 MEQ/15 ML LIQUID PO ONE (12:17)
[2023-10-30] MEDS: Lactated Ringers 1000 ml BAG 1,000 ML IV SCH (17:43)
[2023-10-31 07:38] LABS: ABS Basophils 0.1 10^3/uL (0.0-0.1); ABS Lymphocytes 1.8 10^3/uL (1.0-4.8); ABS Monocytes 1.3 10^3/uL (0.0-1.1); ABS Neutrophils 9.1 10^3/uL (1.5-7.6); ABS Nucleated RBC 0.01 10^3/ul; Eosinophil % 7.6 %; Hematocrit 28.1 % (38-53); Hemoglobin 9.5 g/dL (13.2-16.3); Lymphocyte % 13.5 %; Mean Corpuscular Hemoglobin 31.8 pg (27-33); Mean Corpuscular Hgb Conc 33.8 g/dL (31-36); Mean Platelet Volume 7.5 fL (7.5-11.2); Nucleated Red Blood Cells % 0.1 %/100WBC (0.0-0.8); Platelet Count 306 10^3/uL (150-450); Red Blood Count 2.99 10^6/uL (4.06-5.63); Red Cell Distribution Width 14.6 % (12-17); White Blood Count 13.3 10^3/uL (3.6-10.2)
[2023-10-31 08:10] LABS: Calcium 7.7 mg/dL (8.6-10.3); Creatinine, Serum 0.93 mg/dL (0.67-1.17); Magnesium 1.6 mg/dL (1.9-2.7); Potassium 3.7 mmol/L (3.5-5.0); eGFR CKD-EPI 85.6 (>60)
[2023-10-31] MEDS: Magnesium Sulf 4 GM/100 ML IV 4,000 MG/100 ML BAG IVPB ONE (18:26)
[2023-11-01 05:49] LABS: Hemoglobin 9.6 g/dL (13.2-16.3); Mean Corpuscular Hemoglobin 31.8 pg (27-33); Mean Corpuscular Hgb Conc 34.1 g/dL (31-36); Mean Corpuscular Volume 93.3 fL (80-97); Mean Platelet Volume 7.6 fL (7.5-11.2); Platelet Count 295 10^3/uL (150-450); Red Cell Distribution Width 14.6 % (12-17); White Blood Count 14.3 10^3/uL (3.6-10.2)
[2023-11-01 06:31] LABS: Calcium 7.8 mg/dL (8.6-10.3); Creatinine, Serum 0.92 mg/dL (0.67-1.17); Magnesium 2.1 mg/dL (1.9-2.7); Potassium 3.5 mmol/L (3.5-5.0); eGFR CKD-EPI 86.7 (>60)
[2023-11-02] MEDS: Lactated Ringers 1000 ml BAG 1,000 ML IV SCH (11:25)
[2023-11-04 06:00] LABS: ABS Eosinophils 0.6 10^3/ul (0.0-0.5); ABS Lymphocytes 2.8 10^3/ul (1.0-4.8); ABS Monocytes 0.6 10^3/ul (0.0-1.1); ABS Neutrophils 8.1 10^3/ul (1.5-7.6)
[2023-11-04 06:01] LABS: Hematocrit 28.8 % (38-53); Hemoglobin 9.3 g/dL (13.2-16.3); Mean Corpuscular Hemoglobin 31.5 pg (27-33); Mean Corpuscular Hgb Conc 32.2 g/dL (31-36); Mean Platelet Volume 8.2 fL (7.5-11.2); Platelet Count 221 10^3/uL (150-450); RBC Morphology Normal (Normal); Red Blood Count 2.94 10^6/uL (4.06-5.63); Red Cell Distribution Width 15.2 % (12-17); White Blood Count 12.1 10^3/uL (3.6-10.2)
[2023-11-04 06:14] LABS: Albumin 2.3 g/dL (3.2-5.2); Albumin/Globulin Ratio 0.9 (1-3); Calcium 7.7 mg/dL (8.6-10.3); Creatinine, Serum 1.05 mg/dL (0.67-1.17); Globulin 2.7 g/dL (2-4); Potassium 3.8 mmol/L (3.5-5.0); Total Bilirubin 0.4 mg/dL (0.2-1.0)
[2023-11-04 14:23] VITALS: BP 140/81
== END 2023-11-04 15:15 | DRG 872 ==
LOC: ED 07:27 → EDHOLD 07:27 → MED 18:31 → SUATTDRO 10-29 09:32
PROVIDERS: ADMIT Hospitalist; ATTEND Internal Medicine

== ENCOUNTER 2024-06-26 12:48 | Inpatient (IN) ==
[2024-06-26 14:12] LABS: ABS Basophils 0.1 10^3/uL (0.0-0.1); ABS Eosinophils 0.4 10^3/uL (0.0-0.5); ABS Lymphocytes 2.2 10^3/uL (1.0-4.8); ABS Monocytes 1.5 10^3/uL (0.0-1.1); ABS Neutrophils 9.7 10^3/uL (1.5-7.6); Eosinophil % 2.8 %; Hematocrit 25.1 % (38-53); Hemoglobin 8.2 g/dL (13.2-16.3); Lymphocyte % 15.8 %; Mean Corpuscular Hemoglobin 29.7 pg (27-33); Mean Corpuscular Hgb Conc 32.8 g/dL (31-36); Mean Corpuscular Volume 90.7 fL (80-97); Platelet Count 532 10^3/uL (150-450); Red Blood Count 2.77 10^6/uL (4.06-5.63); White Blood Count 13.9 10^3/uL (3.6-10.2)
[2024-06-26 14:33] LABS: ALT 9 U/L (7-52); AST 11 U/L (13-39); Albumin 2.7 g/dL (3.2-5.2); Albumin/Globulin Ratio 0.7 (1-3); Alkaline Phosphatase 53 U/L (35-149); Anion Gap 8 mmol/L (2-16); Blood Urea Nitrogen 47 mg/dL (6-24); C Reactive Protein 77.61 mg/L (<8.01); CO2 Carbon Dioxide 28 mmol/L (22-32); Calcium 8.5 mg/dL (8.6-10.3); Chloride 100 mmol/L (101-111); Creatinine, Serum 1.16 mg/dL (0.67-1.17); Globulin 3.9 g/dL (2-4); Glucose 105 mg/dL (70-100); Potassium 3.9 mmol/L (3.5-5.0); Sodium 136 mmol/L (135-145); Total Bilirubin 0.2 mg/dL (0.2-1.0); Total Protein 6.6 g/dL (6.4-8.9); eGFR CKD-EPI 65.7 (>60)
[2024-06-26] MEDS ORDERED: Vancomycin 1,000 MG in NS 0.9% 250 ml 250 ML IVPB ONE (14:45)
[2024-06-26] MEDS: Piperacillin/Tazobac 3.375 BAG 3.375 GM/100 ML BAG IV ONE (15:09)
[2024-06-26] MEDS: Lactated Ringers 1000 ml BAG 1,000 ML IV ONE (15:28)
[2024-06-26 15:34] LABS: Erythrocyte Sed Rate > 120 mm/Hr (0-19)
[2024-06-26 16:58] LABS: % Iron Saturation 11 % (15-55); .Transferrin 125 mg/dL (203-362); Iron < 20 ug/dL (50-212); Total Iron Binding Capacity 175 mcg/dL (250-450); Unsaturated Iron Binding 155 ug/dL
[2024-06-26] MEDS ORDERED: Zosyn per Pharmacy NOTE FOLLOW UP SCH (17:00)
[2024-06-26] MEDS ORDERED: Vancomycin per Pharmacy 1 EA NOTE FOLLOW UP SCH (17:00)
[2024-06-26 17:24] LABS: Vitamin B12 275 pg/mL (180-914)
[2024-06-26] MEDS: Vancomycin 1,250 MG in NS 0.9% 250 ml 250 ML IVPB ONE (17:28)
[2024-06-26] MEDS: Lactated Ringers 1000 ml BAG 1,000 ML IV SCH (19:21)
[2024-06-26] MEDS: Senna TAB 8.6 mg TAB PO SCH (20:44)
[2024-06-26] MEDS: ZOSYN 3.375 GM Q8H per EXTENDED INFUSION IV SCH (20:45)
[2024-06-26] MEDS ORDERED: Senna/Docusate 8.6/50 mg (NF) TAB PO SCH (21:00)
[2024-06-27] MEDS: Vancomycin 750 MG in NS 0.9% 250 ML IVPB SCH (06:45)
[2024-06-27 07:47] LABS: ABS Basophils 0.1 10^3/uL (0.0-0.1); ABS Eosinophils 0.5 10^3/uL (0.0-0.5); ABS Lymphocytes 2.4 10^3/uL (1.0-4.8); ABS Monocytes 1.2 10^3/uL (0.0-1.1); ABS Neutrophils 6.5 10^3/uL (1.5-7.6); Eosinophil % 4.2 %; Hematocrit 24.8 % (38-53); Hemoglobin 8.4 g/dL (13.2-16.3); Lymphocyte % 22.2 %; Mean Corpuscular Hemoglobin 30.8 pg (27-33); Mean Corpuscular Hgb Conc 33.9 g/dL (31-36); Mean Corpuscular Volume 90.9 fL (80-97); Mean Platelet Volume 7.2 fL (7.5-11.2); Platelet Count 444 10^3/uL (150-450); Red Blood Count 2.73 10^6/uL (4.06-5.63); Red Cell Distribution Width 16.1 % (12-17); White Blood Count 10.7 10^3/uL (3.6-10.2)
[2024-06-27 08:02] LABS: Calcium 8.4 mg/dL (8.6-10.3); Creatinine, Serum 1.02 mg/dL (0.67-1.17); Magnesium 1.7 mg/dL (1.9-2.7); Potassium 3.9 mmol/L (3.5-5.0); eGFR CKD-EPI 76.6 (>60)
[2024-06-27] MEDS: Vancomycin Trough Check NOTE FOLLOW UP ONE (09:20)
[2024-06-27] MEDS: Magnesium Sulfate 2 gm BAG 2 GM/50 ML BAG IVPB ONE (16:08)
[2024-06-27] MEDS: Enoxaparin 40 MG/0.4 ML SYR SUBCUT SCH (16:08)
[2024-06-27] MEDS: Magnesium Sulfate IV 1GM/100ML 1 GM/100 ML BAG IV ONE (17:11)
[2024-06-27 18:58] LABS: Urine Appearance Turbid; Urine Bilirubin Negative (Negative); Urine Blood 1+ (Negative); Urine Color Light-Yellow; Urine Glucose Negative (Negative); Urine Ketones Negative (Negative); Urine Nitrite 1+ (Negative); Urine Protein Trace (Negative); Urine Specific Gravity 1.012 (1.002-1.030); Urine Urobilinogen Negative (Negative); Urine pH 5.5 (5.0-8.0)
[2024-06-27 19:28] LABS: Urine Bacteria Absent /HPF (Absent); Urine Red Blood Cell 3+(>10/hpf) /HPF (0-Trace); Urine White Blood Cell 3+(>20/hpf) /HPF (0-Trace)
[2024-06-28 06:14] LABS: Hemoglobin 8.1 g/dL (13.2-16.3); Mean Corpuscular Hemoglobin 29.7 pg (27-33); Mean Corpuscular Hgb Conc 32.4 g/dL (31-36); Mean Corpuscular Volume 91.8 fL (80-97); Mean Platelet Volume 7.6 fL (7.5-11.2); Platelet Count 410 10^3/uL (150-450); Red Blood Count 2.72 10^6/uL (4.06-5.63); White Blood Count 14.9 10^3/uL (3.6-10.2)
[2024-06-28 06:44] LABS: Creatinine, Serum 1.02 mg/dL (0.67-1.17); Vancomycin Trough 17.8 mcg/mL; eGFR CKD-EPI 76.6 (>60)
[2024-06-28 06:47] LABS: Calcium 8.5 mg/dL (8.6-10.3); Creatinine, Serum 0.97 mg/dL (0.67-1.17); Magnesium 2.2 mg/dL (1.9-2.7); Potassium 3.6 mmol/L (3.5-5.0); eGFR CKD-EPI 81.4 (>60)
[2024-06-28] MEDS: Vancomycin 1,250 MG in NS 0.9% 250 ml 250 ML IVPB SCH (09:10)
[2024-06-28] MEDS: KCL 20 MEQ/100 ML IVPREMIX 20 MEQ/100 ML BAG IV SCH (14:10)
[2024-06-29 06:53] LABS: ABS Basophils 0.1 10^3/uL (0.0-0.1); ABS Eosinophils 0.4 10^3/uL (0.0-0.5); ABS Lymphocytes 2.6 10^3/uL (1.0-4.8); ABS Monocytes 1.3 10^3/uL (0.0-1.1); ABS Neutrophils 7.2 10^3/uL (1.5-7.6); ABS Nucleated RBC 0.01 10^3/ul; Eosinophil % 3.8 %; Hematocrit 25.1 % (38-53); Hemoglobin 8.1 g/dL (13.2-16.3); Lymphocyte % 22.6 %; Mean Corpuscular Hemoglobin 30.3 pg (27-33); Mean Corpuscular Hgb Conc 32.3 g/dL (31-36); Mean Corpuscular Volume 93.6 fL (80-97); Mean Platelet Volume 7.7 fL (7.5-11.2); Nucleated Red Blood Cells % 0.1 %/100WBC (0.0-0.8); Platelet Count 391 10^3/uL (150-450); Red Blood Count 2.68 10^6/uL (4.06-5.63); Red Cell Distribution Width 16.5 % (12-17); White Blood Count 11.6 10^3/uL (3.6-10.2)
[2024-06-29 08:10] LABS: Calcium 8.2 mg/dL (8.6-10.3); Creatinine, Serum 0.93 mg/dL (0.67-1.17); Potassium 3.7 mmol/L (3.5-5.0); eGFR CKD-EPI 85.6 (>60)
[2024-06-29] MEDS: KCL 20 MEQ/100 ML IVPREMIX 20 MEQ/100 ML BAG IV ONE (11:18)
[2024-06-30] MEDS: ZOSYN 3.375 GM Q8H per EXTENDED INFUSION IV SCH (05:44)
[2024-06-30 10:03] LABS: Hematocrit 25.9 % (38-53); Hemoglobin 8.5 g/dL (13.2-16.3); Mean Corpuscular Hemoglobin 29.9 pg (27-33); Mean Corpuscular Volume 90.7 fL (80-97); Platelet Count 472 10^3/uL (150-450); Red Blood Count 2.85 10^6/uL (4.06-5.63); Red Cell Distribution Width 15.9 % (12-17); White Blood Count 11.2 10^3/uL (3.6-10.2)
[2024-06-30 12:28] LABS: Calcium 8.5 mg/dL (8.6-10.3); Creatinine, Serum 1.01 mg/dL (0.67-1.17); Potassium 3.9 mmol/L (3.5-5.0); Vancomycin Trough 21.8 mcg/mL; eGFR CKD-EPI 77.6 (>60)
[2024-06-30] MEDS: Vancomycin Trough Check NOTE FOLLOW UP ONE (13:20)
[2024-06-30] MEDS: Vancomycin 1000 MG in NS 0.9% 250 ML IVPB SCH (21:55)
[2024-07-01 08:53] LABS: ABS Basophils 0.1 10^3/uL (0.0-0.1); ABS Eosinophils 0.4 10^3/uL (0.0-0.5); ABS Lymphocytes 2.6 10^3/uL (1.0-4.8); ABS Monocytes 1.1 10^3/uL (0.0-1.1); ABS Neutrophils 7.9 10^3/uL (1.5-7.6); ABS Nucleated RBC 0.01 10^3/ul; Eosinophil % 3.3 %; Hematocrit 23.1 % (38-53); Hemoglobin 7.6 g/dL (13.2-16.3); Lymphocyte % 21.1 %; Mean Corpuscular Hgb Conc 32.9 g/dL (31-36); Mean Platelet Volume 7.2 fL (7.5-11.2); Nucleated Red Blood Cells % 0.1 %/100WBC (0.0-0.8); Platelet Count 466 10^3/uL (150-450); Red Blood Count 2.53 10^6/uL (4.06-5.63); Red Cell Distribution Width 16.1 % (12-17); White Blood Count 12.2 10^3/uL (3.6-10.2)
[2024-07-01 09:11] LABS: C Reactive Protein 45.23 mg/L (<8.01); Calcium 8.2 mg/dL (8.6-10.3); Creatinine, Serum 0.96 mg/dL (0.67-1.17); Magnesium 1.6 mg/dL (1.9-2.7); Potassium 3.6 mmol/L (3.5-5.0); eGFR CKD-EPI 82.4 (>60)
[2024-07-01] MEDS: Magnesium Sulfate 2 gm BAG 2 GM/50 ML BAG IVPB ONE (11:01)
[2024-07-01] MEDS: Magnesium Sulfate IV 1GM/100ML 1 GM/100 ML BAG IV ONE (12:24)
[2024-07-02 06:53] LABS: ABS Basophils 0.1 10^3/uL (0.0-0.1); ABS Eosinophils 0.4 10^3/uL (0.0-0.5); ABS Lymphocytes 2.4 10^3/uL (1.0-4.8); ABS Monocytes 1.1 10^3/uL (0.0-1.1); ABS Nucleated RBC 0.01 10^3/ul; Eosinophil % 4.5 %; Hematocrit 23.9 % (38-53); Mean Corpuscular Hemoglobin 30.2 pg (27-33); Mean Corpuscular Hgb Conc 33.4 g/dL (31-36); Mean Corpuscular Volume 90.2 fL (80-97); Mean Platelet Volume 7.2 fL (7.5-11.2); Nucleated Red Blood Cells % 0.1 %/100WBC (0.0-0.8); Platelet Count 388 10^3/uL (150-450); Red Blood Count 2.65 10^6/uL (4.06-5.63); Red Cell Distribution Width 16.5 % (12-17)
[2024-07-02 07:07] LABS: Calcium 7.8 mg/dL (8.6-10.3); Creatinine, Serum 1.16 mg/dL (0.67-1.17); Magnesium 2.1 mg/dL (1.9-2.7); Potassium 3.6 mmol/L (3.5-5.0); eGFR CKD-EPI 65.7 (>60)
[2024-07-02] MEDS: Magnesium Sulfate 2 gm BAG 2 GM/50 ML BAG IVPB ONE (16:53)
[2024-07-03] MEDS: Vancomycin Random Level NOTE FOLLOW UP ONE (01:32)
[2024-07-03] MEDS: Vancomycin 750 MG in NS 0.9% 250 ML IVPB SCH (06:15)
[2024-07-03] MEDS: Dextrose 50% Syringe 50 ml 25 GM/50 ML SYRINGE IV PUSH PRN (12:15)
[2024-07-03] MEDS ORDERED: Vancomycin Random Level NOTE FOLLOW UP ONE (17:30)
[2024-07-03] MEDS ORDERED: fentaNYL 100 mcg/2 ml 50 MCG/ML VIAL ONE (20:09)
[2024-07-03] MEDS ORDERED: Midazolam 2 mg/2 ml VIAL 1 mg/ml 2 ml VIAL (2 mg) ONE (20:09)
[2024-07-03] MEDS ORDERED: KETAMINE HCL 10 MG/ML 20 ml VIAL (200 MG) ONE (20:33)
[2024-07-03] MEDS ORDERED: Dexmedetomidine 200 mcg/2 ml 2 ml VIAL (200 mcg) ONE (20:37)
[2024-07-03] MEDS ORDERED: Metoclopramide 5 MG/ML VIAL (10 mg) IV PRN (21:50)
[2024-07-03] MEDS ORDERED: Naloxone 0.4 mg VIAL 0.4 mg/ml 1 ml VIAL IV PRN (21:50)
[2024-07-03] MEDS ORDERED: fentaNYL 100 mcg/2 ml 50 MCG/ML VIAL IV PRN (21:50)
[2024-07-03] MEDS ORDERED: Ondansetron 4 mg VIAL 2 MG/ML 2 ml VIAL IV PRN (21:50)
[2024-07-03] MEDS ORDERED: NS 0.45% 1000 ml BAG 1,000 ML IV SCH (22:00)
[2024-07-03] MEDS: D5LR 1000 ml BAG 1,000 ML IV SCH (22:32)
[2024-07-03] MEDS: Buffered Lidocaine 1% SYRIN 1 ml INTRADERM ONE (22:33)
[2024-07-03] MEDS: Scopolamine 1 mg/72hr PATCH TRANSDERM ONE (22:34)
[2024-07-03] MEDS: Lactated Ringers 1000 ml BAG 1,000 ML IV SCH (22:43)
[2024-07-04] MEDS: Acetaminophen IV 1 GM/100ML 1,000 MG/100 ML BAG IV ONE (02:25)
[2024-07-04 09:11] LABS: Creatinine, Serum 0.97 mg/dL (0.67-1.17); Vancomycin Random 17.1 mcg/mL; eGFR CKD-EPI 81.4 (>60)
[2024-07-04] MEDS: Vancomycin 750 MG in NS 0.9% 250 ML IVPB SCH (10:15)
[2024-07-04] MEDS: Vancomycin Random Level NOTE FOLLOW UP ONE (10:15)
[2024-07-04] MEDS ORDERED: Enoxaparin 40 MG/0.4 ML SYR SUBCUT SCH (21:00)
[2024-07-04] MEDS: Enoxaparin 80 MG/0.8 ML SYR SUBCUT SCH (22:31)
[2024-07-05 06:48] LABS: ABS Basophils 0.1 10^3/uL (0.0-0.1); ABS Eosinophils 0.4 10^3/uL (0.0-0.5); ABS Lymphocytes 2.1 10^3/uL (1.0-4.8); ABS Monocytes 1.2 10^3/uL (0.0-1.1); ABS Neutrophils 6.5 10^3/uL (1.5-7.6); Hemoglobin 7.3 g/dL (13.2-16.3); Lymphocyte % 20.6 %; Mean Corpuscular Hemoglobin 30.3 pg (27-33); Mean Corpuscular Hgb Conc 33.3 g/dL (31-36); Mean Corpuscular Volume 90.8 fL (80-97); Mean Platelet Volume 7.3 fL (7.5-11.2); Platelet Count 334 10^3/uL (150-450); Red Blood Count 2.42 10^6/uL (4.06-5.63); Red Cell Distribution Width 16.7 % (12-17); White Blood Count 10.4 10^3/uL (3.6-10.2)
[2024-07-05 07:12] LABS: Creatinine, Serum 0.99 mg/dL (0.67-1.17); Vancomycin Random 16.8 mcg/mL; eGFR CKD-EPI 79.4 (>60)
[2024-07-05 07:13] LABS: C Reactive Protein 56.38 mg/L (<8.01); Calcium 7.9 mg/dL (8.6-10.3); Creatinine, Serum 1.02 mg/dL (0.67-1.17); Potassium 3.5 mmol/L (3.5-5.0); eGFR CKD-EPI 76.6 (>60)
[2024-07-05] MEDS: Vancomycin Trough Check NOTE FOLLOW UP ONE (07:43)
[2024-07-06 11:02] LABS: ABS Basophils 0.1 10^3/uL (0.0-0.1); ABS Eosinophils 0.4 10^3/uL (0.0-0.5); ABS Lymphocytes 2.1 10^3/uL (1.0-4.8); ABS Monocytes 1.1 10^3/uL (0.0-1.1); ABS Neutrophils 6.7 10^3/uL (1.5-7.6); ABS Nucleated RBC 0.01 10^3/ul; Eosinophil % 4.2 %; Hematocrit 24.6 % (38-53); Hemoglobin 8.2 g/dL (13.2-16.3); Mean Corpuscular Hemoglobin 30.4 pg (27-33); Mean Corpuscular Hgb Conc 33.3 g/dL (31-36); Mean Corpuscular Volume 91.3 fL (80-97); Mean Platelet Volume 7.3 fL (7.5-11.2); Nucleated Red Blood Cells % 0.1 %/100WBC (0.0-0.8); Platelet Count 328 10^3/uL (150-450); Red Blood Count 2.69 10^6/uL (4.06-5.63); Red Cell Distribution Width 17.2 % (12-17); White Blood Count 10.4 10^3/uL (3.6-10.2)
[2024-07-06] MEDS: cefTRIAXone 2 gm/50 mL D5W 2 GM/50 ML BAG IV SCH (11:18)
[2024-07-06 11:55] LABS: C Reactive Protein 44.54 mg/L (<8.01); Calcium 8.3 mg/dL (8.6-10.3); Creatinine, Serum 1.02 mg/dL (0.67-1.17); Magnesium 1.7 mg/dL (1.9-2.7); Potassium 3.5 mmol/L (3.5-5.0); eGFR CKD-EPI 76.6 (>60)
[2024-07-06] MEDS ORDERED: Morphine 2 MG/ML SYRINGE IV PRN (14:55)
[2024-07-06] MEDS: Magnesium Sulfate 2 gm BAG 2 GM/50 ML BAG IVPB ONE (16:21)
[2024-07-06] MEDS: Magnesium Sulfate IV 1GM/100ML 1 GM/100 ML BAG IV ONE (17:41)
[2024-07-07] MEDS: Vancomycin Trough Check NOTE FOLLOW UP ONE (07:57)
[2024-07-08 11:31] VITALS: BP 134/86
[2024-07-10] MEDS ORDERED: Vancomycin Trough Check NOTE FOLLOW UP ONE (05:30)
== END 2024-07-08 13:10 | DRG 503 ==
LOC: ED 12:48 → EDHOLD 12:48 → MEDTELE 17:46 → SSU 06-28 08:53 → SUATTDRO 06-28 14:20 → MEDTELE 06-30 19:24 → SSU 06-30 23:45 → MEDTELE 07-01 00:14
PROVIDERS: ADMIT Hospitalist; ATTEND Student in an Organized Health Care Education/Training Program